=== PATIENT | female | born 1940 | race Caucasian/White ===

== ENCOUNTER 2018-10-14 12:34 | Inpatient (IN) | payer MEDICARE, OTHER ==
[~2018-10-14] VITALS: Ht 162.6 cm; Wt 85.7 kg
[~2018-10-14 12:34] MED LIST: CLON0.1T PO; DILT180C PO; METO-356 PO
--- NOTE | 2018-10-14 12:39 | NUR ---
PT AMBULATORY W/ WALKER TO ER BED . CAME IN W/ MULTIPLE COMPLAINTS. PT STATES STARTED HAVING PRESSURE LIKE CHEST PAIN AND SOB LAST NIGHT. PT ALSO C/O BLE SWELLING AND PAIN FOR DAYS NOW. FAMILY STATES WORST TODAY. GOWNED AND PLACED ON MONITOR. AWAITNG MD CRUZ.
--- NOTE | 2018-10-14 13:18 | NUR ---
IV LINE STARTED. BLOOD DRAWN AND SENT TO LAB.
--- NOTE | 2018-10-14 13:19 | NUR ---
DR CAM AT BEDSIDE FOR EVAL.
[2018-10-14 13:21] LABS: BASOPHILS # (AUTO) 0.1 /CMM (0.0-0.2); BASOPHILS % (AUTO) 0.6 % (0.0-2.0); EOSINOPHILS % (AUTO) 3.2 % (0.0-6.0); HEMATOCRIT 39 % (33-45); HEMOGLOBIN 13.2 g/dL (11.5-14.8); LYMPHOCYTES # (AUTO) 1.8 /CMM (0.8-4.8); LYMPHOCYTES % (AUTO) 17.5 % (20.0-44.0); MEAN CORPUSCULAR HGB CONC 34 g/dl (31.0-36.0); MEAN CORPUSCULAR VOLUME 89 fL (82-100); MONOCYTES # (AUTO) 0.8 /CMM (0.1-1.30); MONOCYTES % (AUTO) 8.1 % (2.0-12.0); NEUTROPHILS # (AUTO) 7.1 /CMM (1.8-8.9); NEUTROPHILS % (AUTO) 70.6 % (43.0-81.0); PLATELET COUNT (AUTO) 344 /CMM (150-450); RED BLOOD CELL COUNT(AUTO) 4.33 MIL/uL (4.0-5.2); WHITE BLOOD COUNT (AUTO) 10.1 K/uL (4.3-11.0)
[2018-10-14 13:33] LABS: CALCIUM, SERUM 8.7 mg/dL (8.5-10.1); CARBON DIOXIDE 29 mmol/L (21-32); CHLORIDE 104 mmol/L (98-107); CREATININE 0.9 mg/dL (0.6-1.3); GLUCOSE 139 mg/dL (74-106); POTASSIUM 4.2 mmol/L (3.5-5.1); SODIUM SERUM 140 mmol/L (136-145); UREA NITROGEN, BLOOD 26 mg/dL (7-18)
[2018-10-14] MEDS ORDERED: OLME40TA18 PO (13:44)
[2018-10-14] MEDS ORDERED: MONT10TA22 PO (13:44)
[2018-10-14] MEDS ORDERED: CITA20TA16 PO (13:44)
[2018-10-14] MEDS ORDERED: CLON0.1T PO (13:44)
[2018-10-14] MEDS ORDERED: ASPI81TA44 PO (13:44)
[2018-10-14] MEDS ORDERED: DICL100G16 TP (13:44)
[2018-10-14] MEDS ORDERED: ESOM40CA PO (13:44)
[2018-10-14] MEDS ORDERED: ALBU18HF2 IH (13:44)
[2018-10-14] MEDS ORDERED: FURO-144 PO (13:44)
[2018-10-14] MEDS ORDERED: ROSU20TA31 PO (13:44)
[2018-10-14] MEDS ORDERED: MEMA5TAB15 PO (13:44)
[2018-10-14] MEDS ORDERED: CELE200C PO (13:44)
--- NOTE | 2018-10-14 13:44 | NUR ---
CALLED DR LOWE ON THE PHONE WITH DR CAM
[2018-10-14 13:45] LABS: B-TYPE NATRIURETIC PEPTIDE 189 PG/ML (0-125)
--- NOTE | 2018-10-14 14:16 | NUR ---
304-[address] LOWE
[2018-10-14] MEDS ORDERED: ASPIRIN 325 MG TABLET PO ONE (14:30)
[2018-10-14] MEDS ORDERED: FUROSEMIDE 40 MG/4 ML VIAL IV ONE (14:30)
[2018-10-14] MEDS ORDERED: FUROSEMIDE 40 MG/4 ML VIAL ONE (14:44)
[2018-10-14] MEDS ORDERED: ASPIRIN 325 MG TABLET ONE (14:44)
--- NOTE | 2018-10-14 15:00 | NUR ---
REPORT GIVEN TO CORDELL. PT TRANSFERED TO FLOOR, STABLE CONDITION.
--- NOTE | 2018-10-14 15:30 | NUR ---
ADMISSION NOTE PT WAS BROUGHT UP AT THIS TIME, A/O X3-4, BREATHING EVEN AND UNLABORED ON RA, NO S/S OF ANY DISTRESS NOTED, IV IS PATENT AND INTACT, SAFETY PRECAUTIONS IN PLACE, CALL LIGHT WITHIN REACH, WILL MONITOR ACCORDINGLY
[2018-10-14 16:00] VITALS: BP 127/65
[2018-10-14] MEDS ORDERED: ACETAMINOPHEN 325 MG TABLET PO PRN (16:30)
[2018-10-14] MEDS: FUROSEMIDE 20 MG/2 ML VIAL IV SCH (17:35)
[2018-10-14] MEDS: AZITHROMYCIN 250 MG TABLET PO SCH (17:35)
--- NOTE | 2018-10-14 17:42 | NUR ---
INITIAL FINDING OF DUPLEX VENOUS LOWER EXT SHOWED POSITIVE FOR THROMBUS AT RIGHT SFV PROX LEVEL. ADVISED ATTENDING RN.
[2018-10-14] MEDS: CEFTRIAXONE 1 G in IV D5W 50 ML IV SCH (17:48)
[2018-10-14] MEDS: NITROGLYCERIN 30 GM TUBE TP SCH (17:48)
--- NOTE | 2018-10-14 18:33 | NUR ---
RN NOTE MESSAGE WAS SENT TO DR. LOWE REGARDING POSITIVE VENOUS STUDY FOR DVT IN RIGHT PROXIMAL FEMORAL VEIN
--- NOTE | 2018-10-14 18:36 | NUR ---
RN CLOSING NOTE PT IN BED AT LOWEST AND LOCKED POSITION WITH SIDE RAILS X2, A/O X3-4 WITH PERIODS OF FORGETFULNESS, IV IS PATENT AND INTACT, POSITIVE FOR DVT IN RLE, BREATHING EVEN AND UNLABORED WITH NO S/S OF ANY DISTRESS OR PAIN NOTED AT THIS TIME, SAFETY PRECAUTIONS IN PLACE, CALL LIGHT WITHIN REACH, ALL NEEDS ATTENDED TO, WILL ENDORSE TO ONCOMING COMPUTER TRAINING SPECIALIST RN FOR YOAN.
[2018-10-14] MEDS ORDERED: CLONIDINE HCL 0.1 MG TABLET PO PRN (19:30)
--- NOTE | 2018-10-14 19:30 | NUR ---
RN NOTES RECEIVED PT. SITTING ON HER BED, A/OX2-3 PERIOD OF CONFUSION, SONS AT BEDSIDE , SR ON TELE MONITOR HR-72, DENIES PAIN, NO SOB, CALL LIGHT WITHIN REACH, SIDERAILSUPX2, CONTINUE TO MONITOR
[2018-10-14] MEDS: ALBUTEROL FS 2.5 MG/0.5 ML VIAL.NEB NEB SCH (19:42)
[2018-10-14] MEDS: IPRATROPIUM NEB FS 0.5 MG/2.5 ML AMPUL.NEB NEB SCH (19:42)
[2018-10-14 20:00] VITALS: BP 92/62
[2018-10-14] MEDS ORDERED: ENOXAPARIN SODIUM 30 MG/0.3 ML DISP.SYRIN SQ SCH (21:00)
[2018-10-14] MEDS ORDERED: CITALOPRAM HYDROBROMIDE 20 MG TABLET PO SCH (22:00)
--- NOTE | 2018-10-14 23:00 | NUR ---
RN NOTES PT. GOT CONFUSED AND ASKING THE SAME QUESTIONS, "WHY SHE WAS IN THE HOSPITAL".. CALLED HER SON DIVINA AND HER SON KEEP EXPLAINING TO HER WHY SHE'S IN THE HOSPITAL... SPOKE TO PT'S SON AND HE TOLD ME THAT HIS MOM HAS SUNDOWNER AND IF I CAN GIVE HER SOMETHING . I EXPLAINED TO HER SON THAT I ALREADY GAVE SOMETHING AND LATER WERE GOING TO MOVE THE PT, TO ANOTHER ROOM NEAR THE NURSES STATION
[2018-10-15] VITALS: BP 119/66
[2018-10-15] MEDS: FUROSEMIDE 20 MG/2 ML VIAL IV SCH (00:48)
[2018-10-15] MEDS: NITROGLYCERIN 30 GM TUBE TP SCH ×4 (00:49→17:28)
--- NOTE | 2018-10-15 00:58 | NUR ---
RN NOTES COMPLAINED OF LEG PAIN AND ASKED FOR TYLENOL , TYLENOL 650MG PO GIVEN ORDERED
[2018-10-15] MEDS: IPRATROPIUM NEB FS 0.5 MG/2.5 ML AMPUL.NEB NEB SCH ×3 (01:27→13:32)
[2018-10-15] MEDS: ALBUTEROL FS 2.5 MG/0.5 ML VIAL.NEB NEB SCH ×3 (01:27→13:32)
[2018-10-15 04:00] VITALS: BP 100/58
--- NOTE | 2018-10-15 04:00 | NUR ---
RN NOTES PT. PULLED OUT HER IV .. NEW IV LINE INSERTED ON HER RIGHT FOREARM GAUGE 22
--- NOTE | 2018-10-15 06:30 | NUR ---
RN NOTES AWAKE, MORNING CARE RENDERED, CALL LIGHT WITHIN REACH, [id number], PT. NEEDS ATTENDED
[2018-10-15 06:51] LABS: BASOPHILS % (AUTO) 0.5 % (0.0-2.0); EOSINOPHILS % (AUTO) 3.4 % (0.0-6.0); HEMATOCRIT 38 % (33-45); HEMOGLOBIN 13.1 g/dL (11.5-14.8); LYMPHOCYTES # (AUTO) 2.2 /CMM (0.8-4.8); LYMPHOCYTES % (AUTO) 24.2 % (20.0-44.0); MEAN CORPUSCULAR HGB CONC 34 g/dl (31.0-36.0); MEAN CORPUSCULAR VOLUME 88 fL (82-100); MONOCYTES # (AUTO) 0.7 /CMM (0.1-1.30); MONOCYTES % (AUTO) 7.7 % (2.0-12.0); NEUTROPHILS # (AUTO) 5.7 /CMM (1.8-8.9); NEUTROPHILS % (AUTO) 64.2 % (43.0-81.0); PLATELET COUNT (AUTO) 352 /CMM (150-450); RED BLOOD CELL COUNT(AUTO) 4.37 MIL/uL (4.0-5.2); WHITE BLOOD COUNT (AUTO) 8.9 K/uL (4.3-11.0)
[2018-10-15 07:00] LABS: CALCIUM, SERUM 8.8 mg/dL (8.5-10.1); CARBON DIOXIDE 29 mmol/L (21-32); CHLORIDE 101 mmol/L (98-107); GLUCOSE 141 mg/dL (74-106); POTASSIUM 3.9 mmol/L (3.5-5.1); SODIUM SERUM 139 mmol/L (136-145); UREA NITROGEN, BLOOD 28 mg/dL (7-18)
--- NOTE | 2018-10-15 07:22 | NUR ---
RN OPENING NOTE PT IN BED AT LOWEST AND LOCKED POSITION WITH SIDE RAILS UP X2, A/O X2-3 WITH PERIODS OF CONFUSION, BREATHING EVEN AND UNLABORED ON RA, NO S/S OF ANY DISTRESS OR PAIN AT THIS TIME, IV IS PATENT AND INTACT, NOTED TO BLE REDNESS WITH SLIGHT SWELLING, NOTED TO HAVE OLD THROMBUS IN RIGHT PROXIMAL VEIN, SAFETY PRECAUTIONS IN PLACE, CALL LIGHT WITHIN REACH, WILL MONITOR PT ACCORDINGLY.
[2018-10-15] MEDS ORDERED: PANTOPRAZOLE 40 MG TABLET.DR PO SCH (07:30)
[2018-10-15 08:00] VITALS: BP 110/49
--- NOTE | 2018-10-15 08:32 | NUR ---
RN NOTE DUPLICATE DOSE OF ASPIRIN 81MG, ONE WAS NON-ADMIN BECAUSE OF IT.
[2018-10-15] MEDS ORDERED: ATORVASTATIN 10 MG TABLET PO SCH (09:00)
[2018-10-15] MEDS ORDERED: CELECOXIB 100 MG CAPSULE PO SCH (09:00)
[2018-10-15] MEDS ORDERED: LOSARTAN POTASSIUM 50 MG TABLET PO SCH (09:00)
[2018-10-15] MEDS ORDERED: ASPIRIN 81 MG TAB.CHEW PO SCH (09:00)
[2018-10-15] MEDS ORDERED: METOPROLOL SUCCINATE 25 MG TAB.SR.24H PO SCH (09:00)
[2018-10-15] MEDS ORDERED: MONTELUKAST SODIUM (10MG) 10 MG TABLET PO SCH (09:00)
[2018-10-15] MEDS ORDERED: ASPIRIN EC 81 MG TABLET.DR PO SCH (09:00)
[2018-10-15] MEDS ORDERED: ALBUTEROL SULFATE 8 GM HFA.AER.AD IH SCH (09:00)
[2018-10-15] MEDS ORDERED: MEMANTINE HCL 5 MG TABLET PO SCH (09:00)
--- NOTE | 2018-10-15 09:40 | NUR ---
RN NOTE PT REFUSED CT PULMONARY ANGIOGRAM AT THIS TIME, ROXANA WHITE WAS ALSO INFORMED. Addendum: 10/15/18 at 1515 by CORDELL ONEILL RN ALSO MADE AWARE
[2018-10-15 16:00] VITALS: BP 105/73
[2018-10-15] MEDS: AZITHROMYCIN 250 MG TABLET PO SCH (16:29)
[2018-10-15] MEDS ORDERED: LACTOBACILLUS RHAMNOSUS GG 1 EACH CAP.SPRINK PO SCH (17:00)
[2018-10-15] MEDS: CEFTRIAXONE 1 G in IV D5W 50 ML IV SCH (17:04)
[2018-10-15 17:28] VITALS: BP 108/73
--- NOTE | 2018-10-15 18:01 | NUR ---
DISCHARGE NOTE PT WAS D/C AT THIS TIME BACK HOME WITH HER SON DIVINA IN MEDICALLY STABLE CONDITION, IV AND ID BAND WERE REMOVED. ALL D/C PAPERWORK, EXITCARE, AND BELONGINGS LIST WERE SIGNED, DISCUSSED, AND HANDED TO THE PT. ALL BELONGINGS WERE HANDED TO THE PATIENT WELL. PHOTOS OF SKIN WERE TAKEN AND PLACED IN THE CHART. PRESCRIPTION WAS GIVEN WELL. ALL NEEDS WERE ATTENDED TO DURING HER STAY. PT WAS TAKEN DOWN AT THIS TIME BY JUANJO MENCHACA, WHERE SHE LEFT AT THIS TIME IN THEIR PRIVATE CAR.
== END 2018-10-15 18:11 | disposition home or self-care (01) | DRG 203 ==
LOC: ER 12:36 → TELE 14:29 → MED 10-15 09:09
PROVIDERS: ADMIT Legal Medicine; ATTEND Legal Medicine
DX: J45.901 Unspecified asthma with (acute) exacerbation (principal); J44.9 Chronic obstructive pulmonary disease, unspecified; I10 Essential (primary) hypertension; F03.90 Unspecified dementia, unspecified severity, without behavioral disturbance, psychotic disturbance, mood disturbance, and anxiety; E78.5 Hyperlipidemia, unspecified; K21.9 Gastro-esophageal reflux disease without esophagitis
CPT/HCPCS: 36415; 71045-TC; 80048-TC; 83735-TC; 83880; 84484-TC; 85025-TC; 85730-TC; 87081-TC; 93307-TC; 93970-TC; G0378; J0696; J1650; J1940; J7060

== ENCOUNTER 2019-06-25 11:33 | Inpatient (IN) | payer MEDICARE, OTHER ==
[~2019-06-25] VITALS: Ht 165.1 cm; Wt 98.4 kg
[~2019-06-25 11:33] MED LIST changes: +ALBU18HF2 IH; +ASPI81TA44 PO; +CELE200C PO; +CITA20TA16 PO; +DICL100G16 TP; -DILT180C PO; +ESOM40CA PO; +FURO-144 PO; +MEMA5TAB42 PO; -METO-356 PO; +METO25TA4 PO; +MONT10TA22 PO; +OLME40TA18 PO; +ROSU20TA32 PO
--- NOTE | 2019-06-25 11:37 | NUR ---
[id number], from home, flu like symptoms, cough since yesterday. +FEVER. STATES PAIN IN LEFT LEG FROM PREVIOUS FALL. DENIES SOB, DIZZINESS, WEAKNESS, N/V. AOX4, VSS, RR EVEN AND UNLABORED. SPEAKS SOME SWEDISH. ON MONITOR, MADE COMFORTABLE, READY FOR EVAL.
[2019-06-25] MEDS ORDERED: ACETAMINOPHEN ES 500 MG TABLET ONE (11:44)
[2019-06-25] MEDS ORDERED: ACETAMINOPHEN ES 500 MG TABLET PO ONE (12:00)
[2019-06-25] MEDS ORDERED: IV NS 0.9% 500 ML BAG IV ONE (12:00)
[2019-06-25 12:01] LABS: BASOPHILS % (AUTO) 0.2 % (0.0-2.0); EOSINOPHILS % (AUTO) 0.1 % (0.0-6.0); HEMATOCRIT 41 % (33-45); HEMOGLOBIN 13.7 g/dL (11.5-14.8); LYMPHOCYTES # (AUTO) 0.6 /CMM (0.8-4.8); LYMPHOCYTES % (AUTO) 7.3 % (20.0-44.0); MEAN CORPUSCULAR HGB CONC 33 g/dl (31.0-36.0); MEAN CORPUSCULAR VOLUME 91 fL (82-100); MONOCYTES # (AUTO) 0.8 /CMM (0.1-1.30); MONOCYTES % (AUTO) 8.8 % (2.0-12.0); NEUTROPHILS # (AUTO) 7.2 /CMM (1.8-8.9); NEUTROPHILS % (AUTO) 83.6 % (43.0-81.0); PLATELET COUNT (AUTO) 252 /CMM (150-450); RED BLOOD CELL COUNT(AUTO) 4.52 MIL/uL (4.0-5.2); WHITE BLOOD COUNT (AUTO) 8.6 K/uL (4.3-11.0)
--- NOTE | 2019-06-25 12:06 | NUR ---
IV LINE ESTABLISHED, IVF INFUSING. PT ZAYNAB WELL.
[2019-06-25 12:15] LABS: CALCIUM, SERUM 8.9 mg/dL (8.5-10.1); CARBON DIOXIDE 32 mmol/L (21-32); CHLORIDE 100 mmol/L (98-107); CREATININE 1.1 mg/dL (0.6-1.3); GLUCOSE 172 mg/dL (74-106); POTASSIUM 3.9 mmol/L (3.5-5.1); SODIUM SERUM 137 mmol/L (136-145); UREA NITROGEN, BLOOD 21 mg/dL (7-18)
--- NOTE | 2019-06-25 12:23 | NUR ---
lactic acid 2.3
[2019-06-25 12:29] LABS: ALANINE AMINOTRANSFERASE 26 U/L (12-78); ALBUMIN 3.5 g/dL (3.4-5.0); ALKALINE PHOSPHATASE 58 U/L (46-116); ASPARTATE AMINOTRANSFERASE 23 U/L (15-37); B-TYPE NATRIURETIC PEPTIDE 306 PG/ML (0-125); BILIRUBIN,DIRECT 0.1 mg/dL (0.0-0.2); BILIRUBIN,TOTAL 0.6 mg/dL (0.2-1.0); TOTAL PROTEIN, SERUM 7.3 g/dL (6.4-8.2)
[2019-06-25] MEDS ORDERED: IV NS 0.9% 1,000 ML BAG IV ONE (12:30)
[2019-06-25] MEDS ORDERED: PIPERACILLIN /TAZOBACTAM 3.375 G in IV D5W 50 ML IV ONE (12:30)
[2019-06-25] MEDS ORDERED: VANCOMYCIN 1 GM in IV D5W 250 ML IV ONE (12:30)
--- NOTE | 2019-06-25 12:35 | NUR ---
CALLED FOR TELE BED AND SUBMITTED MOVE SHEET TO ADMITTING
--- NOTE | 2019-06-25 12:45 | NUR ---
GOT TELE 328-2
--- NOTE | 2019-06-25 13:00 | NUR ---
FLU SWAB SENT TO STAT LAB
--- NOTE | 2019-06-25 13:10 | NUR ---
ESSIE PAGED ITS MAYCO
--- NOTE | 2019-06-25 13:20 | NUR ---
URINE OBTAINED VIA STRAIGHT CATH PER PROTOCOL PER MD AND SENT TO STAT LAB
[2019-06-25 13:55] LABS: APPEARANCE,URINE Clear (CLEAR); BILIRUBIN,URINE Negative (NEGATIVE); BLOOD, URINE Negative Ery/uL (NEGATIVE); COLOR,URINE Yellow (YELLOW); KETONES,URINE Negative (NEGATIVE); LEUKOCYTE ESTERASE ,URINE Negative (NEGATIVE); NITRITE, URINE Negative (NEGATIVE); PH,URINE 6.5 (5.0-8.0); PROTEIN,URINE Negative (NEGATIVE); UGLUCOSE Negative (NEGATIVE); UROBILINOGEN,URINE 0.2 EU/dL (0.2)
--- NOTE | 2019-06-25 13:59 | NUR ---
REPORT GIVEN TO BABATUNDE ESTEBAN FOR 328-2 TELE, ADMITTING GILMAR MAO.
--- NOTE | 2019-06-25 14:12 | NUR ---
[facility]
--- NOTE | 2019-06-25 14:30 | NUR ---
MS/RN ADMITTING NOTE Report received from Jennifer FINE in the ER. Patient received via gurney, A/O x4, showing no signs of acute distress or SOB, patient is saturating 97% on room air. Slight wheezing noted upon auscultation. IV line in the RAC is clean and intact, open and running NS for a total of 3,100 started in the ER. Vital signs: BP 141/69, HR 82, RR 20, T 98.7F, O2 97% on RA. Skin assessed, photos taken and placed in chart. Patient was able to ambulate to the bathroom using a walker and stand-by assistance. MD made aware that patient has arrived and awaiting admitting orders. Bed is in lowest position, side rails x3, in upright position, call light is within reach and patient is aware of how to call for assistance when needed. Will continue with plan of care.
[2019-06-25] MEDS ORDERED: IV NS 0.9% 1,000 ML IV PRN (18:25)
[2019-06-25] MEDS ORDERED: CLONIDINE HCL 0.1 MG TABLET PO PRN (18:30)
[2019-06-25] MEDS ORDERED: ONDANSETRON HCL/PF 4 MG/2 ML VIAL IVP PRN (18:30)
[2019-06-25] MEDS ORDERED: ACETAMINOPHEN 325 MG TABLET PO PRN (18:30)
[2019-06-25] MEDS ORDERED: DICLOFENAC TOPICAL 100 GM GEL..GM. TP PRN (18:30)
[2019-06-25] MEDS ORDERED: Z GUARD REMEDY 2 OZ OINT TP PRN (18:30)
[2019-06-25] MEDS ORDERED: QUETIAPINE FUMARATE 25 MG TABLET PO PRN (19:00)
[2019-06-25] MEDS ORDERED: DEXAMETHASONE SOD PHOSPHATE 10 MG/ML VIAL IV ONE (19:00)
--- NOTE | 2019-06-25 19:30 | NUR ---
RN NOTES RECEIVED PT. AWAKE ON BED, A/OX2, TRINIDADIAN SPEAKING, FAMILY AT BEDSIDE, ST ON TELE MONITOR HR-104, NOT IN DISTRESS, BUT NOTICED PT. IS WHEEZING,, CALLED RT FOR BREATHING TREATMENT... CALL LIGHT WITHIN REACH, SIDERAILSUPX2, CONTINUE TO MONITOR
--- NOTE | 2019-06-25 19:32 | NUR ---
BUSINESS PLANNING ANALYST CLOSING NOTE PATIENT IN BED RESTING COMFORTABLY. PATIENT IN NO ACUTE DISTRESS. NO SOB NOTED. PATIENT BREATHING IS EVEN AND UNLABORED. PATIENT ON CARDIAC MONITORING READING SINUS RHYTHM, HR 93. PATIENT KEPT CLEAN AND DRY THROUGHOUT SHIFT. PATIENT NEEDS AND CONCERNS ADDRESSED. SAFETY PRECAUTIONS IN PLACE. PATIENT BED IS LOCKED AND IN LOWEST POSITION. CALL LIGHT WITHIN REACH. WILL ENDORSE CARE TO PM SHIFT FOR YOAN.
[2019-06-25 20:00] VITALS: BP 152/78
[2019-06-25] MEDS: IPRATROPIUM NEB FS 0.5 MG/2.5 ML AMPUL.NEB NEB SCH (20:04)
[2019-06-25] MEDS: ALBUTEROL FS 2.5 MG/3 ML VIAL.NEB NEB SCH (20:04)
[2019-06-25] MEDS ORDERED: ENOXAPARIN SODIUM 40 MG/0.4 ML DISP.SYRIN SQ SCH (21:00)
--- NOTE | 2019-06-25 21:47 | NUR ---
RN NOTES PT HAS TEMP. OF 99.8 - TYLENOL 650MG PO GIVEN ORDERED, CONTINUE TO MONITOR
[2019-06-25] MEDS: CEPHALEXIN MONOHYDRATE 500 MG CAPSULE PO SCH (21:52)
[2019-06-25] MEDS ORDERED: MONTELUKAST SODIUM (10MG) 10 MG TABLET PO SCH (22:00)
[2019-06-25] MEDS ORDERED: CITALOPRAM HYDROBROMIDE 20 MG TABLET PO SCH (22:00)
[2019-06-25] MEDS ORDERED: ATORVASTATIN 40 MG TABLET PO SCH (22:00)
[2019-06-26] VITALS: BP 95/52
[2019-06-26 04:00] VITALS: BP 112/50
--- NOTE | 2019-06-26 04:00 | NUR ---
RN NOTES PT. TEMP WENT DOWN TO 97.9... PT. WAS SO AGITATED AND WANTS TO GO TO THE TOILET , PT TRIED TO HIT US WHEN WERE HELPING HER TO GO TO THE COMMODE BECAUSE SHE WAS SO WEAK AND NOT STABLE, PT. REFUSED ASSISTANCE.. WE EXPLAINED TO THE PATIENT THE IMPORTANCE OF GOING TO THE COMMODE THAN GOING TO THE TOILET, STILL TRYING TO HIT US... PT CAN UNDERSTAND TURKISH AND CAN SPEAK LITTLE TURKISH... FINALLY PATIENT AGREED FOR US TO HOLD HER BUT SHE'S STILL MAD
[2019-06-26] MEDS: CEPHALEXIN MONOHYDRATE 500 MG CAPSULE PO SCH ×2 (04:40→13:00)
[2019-06-26 06:25] LABS: BASOPHILS % (AUTO) 0.1 % (0.0-2.0); HEMATOCRIT 41 % (33-45); HEMOGLOBIN 13.1 g/dL (11.5-14.8); LYMPHOCYTES # (AUTO) 0.4 /CMM (0.8-4.8); LYMPHOCYTES % (AUTO) 5.5 % (20.0-44.0); MEAN CORPUSCULAR HGB CONC 32 g/dl (31.0-36.0); MEAN CORPUSCULAR VOLUME 92 fL (82-100); MONOCYTES # (AUTO) 0.2 /CMM (0.1-1.30); MONOCYTES % (AUTO) 2.9 % (2.0-12.0); NEUTROPHILS # (AUTO) 6.7 /CMM (1.8-8.9); NEUTROPHILS % (AUTO) 91.5 % (43.0-81.0); PLATELET COUNT (AUTO) 191 /CMM (150-450); RED BLOOD CELL COUNT(AUTO) 4.44 MIL/uL (4.0-5.2); WHITE BLOOD COUNT (AUTO) 7.3 K/uL (4.3-11.0)
--- NOTE | 2019-06-26 06:34 | NUR ---
RN NOTES SLEEPING BUT AROUSABLE, NOT IN DISTRESS, NO PAIN NOTED, CALL LIGHT WITHIN REACH, SIDERAILSUPX2, MORNING CARE RENDERED, PT. NEEDS ATTENDED
[2019-06-26 06:39] LABS: ALBUMIN 2.7 g/dL (3.4-5.0); BILIRUBIN,TOTAL 0.3 mg/dL (0.2-1.0); CALCIUM, SERUM 8.1 mg/dL (8.5-10.1); CREATININE 0.9 mg/dL (0.6-1.3); MAGNESIUM 1.8 mg/dL (1.8-2.4); POTASSIUM 3.7 mmol/L (3.5-5.1); TOTAL PROTEIN, SERUM 6.2 g/dL (6.4-8.2)
[2019-06-26 06:43] LABS: THYROID STIMULATING HORMONE 0.189 uIU/mL (0.358-3.74)
[2019-06-26] MEDS: IPRATROPIUM NEB FS 0.5 MG/2.5 ML AMPUL.NEB NEB SCH ×2 (07:16→11:40)
[2019-06-26] MEDS: ALBUTEROL FS 2.5 MG/3 ML VIAL.NEB NEB SCH ×2 (07:16→11:40)
--- NOTE | 2019-06-26 07:20 | NUR ---
TELE/RN OPENING NOTOE Patient is resting in bed, A/O x2, confused and agitated. Patient is currently receiving breathing treatment, showing no signs of SOB at the moment. IV line is clean and intact, patent and flushing well. Bed is in lowest position, side rails x3 in upright position, call light is within reach and patient is aware of how to call for assistance when needed. Safety, fall, and aspiration precautions enforced. Sitter is at the bedside. Will continue with plan of care.
[2019-06-26] MEDS ORDERED: PANTOPRAZOLE 40 MG TABLET.DR PO SCH (07:30)
[2019-06-26 08:49] VITALS: BP 129/84
[2019-06-26] MEDS ORDERED: CELECOXIB 100 MG CAPSULE PO SCH (09:00)
[2019-06-26] MEDS ORDERED: ASPIRIN EC 81 MG TABLET.DR PO SCH (09:00)
[2019-06-26] MEDS ORDERED: MEMANTINE HCL 5 MG TABLET PO SCH (09:00)
[2019-06-26] MEDS ORDERED: LOSARTAN POTASSIUM 50 MG TABLET PO SCH (09:00)
[2019-06-26] MEDS ORDERED: FUROSEMIDE 40 MG TABLET PO SCH (09:00)
[2019-06-26] MEDS ORDERED: CANDESARTAN CILEXETIL 16 MG TABLET PO SCH (09:00)
[2019-06-26] MEDS ORDERED: METOPROLOL SUCCINATE 25 MG TAB.SR.24H PO SCH (09:00)
--- NOTE | 2019-06-26 13:26 | NUR ---
MS/PLUMBING ENGINEER NOTE Patient is medically stable for discharge. A/O x3, with periods of confusion. Patient is in no acute distress, no SOB noted, saturating 97% on RA. Vitals signs WNL. All patient needs met, all due meds given. Patient kept clean and comfortable throughout shift. DC instructions provided and patient verbalized understanding. Patient refused skin assessment and photos. IV removed, ID band removed. Patient has all belongings with them. MD is aware of discharge. Patient left the unit on wheelchair and left hospital via private car accompanied by son, Ed.
== END 2019-06-26 13:30 | disposition home or self-care (01) | DRG 202 ==
LOC: ER 11:35 → TELE 13:05 → MED 06-26 08:45
PROVIDERS: ADMIT Nurse Practitioner Acute Care; ATTEND Nurse Practitioner Acute Care
DX: J20.8 Acute bronchitis due to other specified organisms (principal); G93.41 Metabolic encephalopathy; E87.2 Acidosis; I50.32 Chronic diastolic (congestive) heart failure; F03.91 Unspecified dementia, unspecified severity, with behavioral disturbance; E66.01 Morbid (severe) obesity due to excess calories; E88.09 Other disorders of plasma-protein metabolism, not elsewhere classified; I25.10 Atherosclerotic heart disease of native coronary artery without angina pectoris; J45.909 Unspecified asthma, uncomplicated; K21.9 Gastro-esophageal reflux disease without esophagitis; I11.0 Hypertensive heart disease with heart failure; M19.90 Unspecified osteoarthritis, unspecified site; S91.001A Unspecified open wound, right ankle, initial encounter; X58.XXXA Exposure to other specified factors, initial encounter; Y93.9 Activity, unspecified; Y92.009 Unspecified place in unspecified non-institutional (private) residence as the place of occurrence of the external cause; L53.9 Erythematous condition, unspecified
CPT/HCPCS: 36415; 71045-TC; 80048-TC; 80053-TC; 80061-TC; 80076-TC; 81000-TC; 83540-TC; 83605-TC; 83735-TC; 83880; 84100-TC; 84443-TC; 84484-TC; 85025-TC; 85730-TC; 87040-TC; 87081-TC; 87086-TC; 93307-TC; 97116-TC; 97530-TC; G0378; J1100; J1650; J2543; J3370; J7030; J7040; J7060

== ENCOUNTER 2020-06-23 12:22 | Inpatient (IN) | payer MEDICARE, OTHER ==
[~2020-06-23] VITALS: Ht 162.6 cm; Wt 81.6 kg
--- NOTE | 2020-06-23 12:30 | NUR ---
BIBRA 78 FROM HOME C/O WEAKNESS AND MORE ALTERED THAN USUAL.BG 128. PATIENT A/OX3, BREATHING EVEN AND UNLABORED, NO SOB NOTED. NEEDS ATTENDED. PT STS "I HAVE LUNG PAIN." CHANGED INTO A GOWN, ATTACHED TO THE FANS CLERK.
[2020-06-23 12:55] LABS: BASOPHILS % (AUTO) 0.3 % (0.0-2.0); HEMATOCRIT 43 % (33-45); HEMOGLOBIN 14.3 g/dL (11.5-14.8); LYMPHOCYTES # (AUTO) 1.6 /CMM (0.8-4.8); MEAN CORPUSCULAR HGB CONC 33 g/dl (31.0-36.0); MEAN CORPUSCULAR VOLUME 91 fL (82-100); MONOCYTES # (AUTO) 0.7 /CMM (0.1-1.30); MONOCYTES % (AUTO) 10.8 % (2.0-12.0); NEUTROPHILS # (AUTO) 4.4 /CMM (1.8-8.9); NEUTROPHILS % (AUTO) 64.9 % (43.0-81.0); PLATELET COUNT (AUTO) 201 /CMM (150-450); RED BLOOD CELL COUNT(AUTO) 4.75 MIL/uL (4.0-5.2); WHITE BLOOD COUNT (AUTO) 6.8 K/uL (4.3-11.0)
[2020-06-23] MEDS ORDERED: IV NS 0.9% 1,000 ML BAG IV ONE (13:00)
--- NOTE | 2020-06-23 13:06 | NUR ---
COVID SWAB AND URINE SENT.
[2020-06-23 13:08] LABS: CALCIUM, SERUM 8.6 mg/dL (8.5-10.1); CARBON DIOXIDE 30 mmol/L (21-32); CHLORIDE 102 mmol/L (98-107); CREATININE 1.1 mg/dL (0.6-1.3); GLUCOSE 111 mg/dL (74-106); POTASSIUM 4.4 mmol/L (3.5-5.1); SERUM AMMONIA 14 umol/L (11-32); SODIUM SERUM 139 mmol/L (136-145); UREA NITROGEN, BLOOD 25 mg/dL (7-18)
[2020-06-23 13:16] LABS: ALANINE AMINOTRANSFERASE 22 U/L (12-78); ALBUMIN 3.1 g/dL (3.4-5.0); ALCOHOL, BLOOD < 3 mg/dL (0-0); ALKALINE PHOSPHATASE 54 U/L (46-116); ASPARTATE AMINOTRANSFERASE 39 U/L (15-37); BILIRUBIN,DIRECT 0.1 mg/dL (0.0-0.2); BILIRUBIN,TOTAL 0.4 mg/dL (0.2-1.0); TOTAL PROTEIN, SERUM 7.1 g/dL (6.4-8.2)
[2020-06-23 13:17] LABS: ACETAMINOPHEN < 10 ug/ml (10-30)
[2020-06-23 13:22] LABS: BILIRUBIN,URINE NEGATIVE (NEGATIVE); COLOR,URINE YELLOW (YELLOW); LEUKOCYTE ESTERASE ,URINE NEGATIVE (NEGATIVE); NITRITE, URINE NEGATIVE (NEGATIVE); PROTEIN,URINE NEGATIVE (NEGATIVE); UGLUCOSE NEGATIVE (NEGATIVE); UROBILINOGEN,URINE 0.2 EU/dL (0.2)
[2020-06-23] MEDS ORDERED: GABA-532 PO (13:33)
[2020-06-23] MEDS ORDERED: RISP1TAB97 PO (13:33)
[2020-06-23] MEDS ORDERED: ASPI-495 PO (13:33)
[2020-06-23 13:40] LABS: THYROID STIMULATING HORMONE 1.025 uIU/mL (0.358-3.74)
[2020-06-23] MEDS ORDERED: MAGNESIUM HYDROXIDE 30 ML UDC PO PRN (14:30)
[2020-06-23] MEDS ORDERED: ENOXAPARIN SODIUM 40 MG/0.4 ML DISP.SYRIN SQ SCH (14:30)
[2020-06-23] MEDS ORDERED: MAG HYDROX/AL HYDROX/SIMETH 30 ML UDC PO PRN (14:30)
[2020-06-23] MEDS ORDERED: Z GUARD REMEDY 2 OZ OINT TP PRN (14:30)
[2020-06-23] MEDS ORDERED: ACETAMINOPHEN 325 MG TABLET PO PRN (14:30)
[2020-06-23] MEDS ORDERED: ZOLPIDEM TARTRATE 5 MG TABLET PO PRN (14:30)
[2020-06-23] MEDS ORDERED: ONDANSETRON HCL/PF 4 MG/2 ML VIAL IVP PRN (14:30)
--- NOTE | 2020-06-23 14:38 | NUR ---
PATIENT RESTING, NO DISTRESS NOTED.
--- NOTE | 2020-06-23 14:41 | NUR ---
PER DIVINA, PT HAS BEEN WEAK LATELY, SHE WALKS WITH A WALKER. LIVES ALONE WITH CAREGIVER.
--- NOTE | 2020-06-23 15:01 | NUR ---
BED 116-1
--- NOTE | 2020-06-23 15:11 | NUR ---
REPORT GIVEN TO EVELYN FINE FOR YOAN.
[2020-06-23] MEDS ORDERED: DEXAMETHASONE SOD PHOSPHATE 10 MG/ML VIAL IV STA (15:14)
--- NOTE | 2020-06-23 15:24 | NUR ---
PATIENT TRANSFERRED TO ROOM 116-1 VIA ACLS PROTOCOL. NO DISTRESS NOTED.
--- NOTE | 2020-06-23 15:30 | NUR ---
ADMITTING NOTES RECEIVED PATIENT FROM ER ER, VIA BOBBI GRAY, NORTH KOREAN/[place] SPEAKER VERBALIZE UNDERSTANDING, ON ROOM AIR, SPO2 IS 95%, DENIES PAIN OR DISCOMFORT, SKIN IS INTACT, IV LINE ON R AC, STARTED ON IV FLUIDS, TOLERATING WELL, ELIZALDE CATH IN PLACE, DRAINING YELLOW URINE BY GRAVITY, SAFETY MEASURES IN PLACE, CALL LIGHT IN REACH, WILL CONT TO MONITOR
[2020-06-23 16:00] VITALS: BP 153/72
[2020-06-23] MEDS: MEMANTINE HCL 5 MG TABLET PO SCH (16:49)
[2020-06-23] MEDS: GABAPENTIN 100 MG CAPSULE PO SCH (16:49)
[2020-06-23] MEDS: IV NS 0.9% 1,000 ML IV PRN (16:52)
--- NOTE | 2020-06-23 17:00 | NUR ---
patient is confused, trying to get up fom the bed, remving IV lines and Manning cath, provided education and reorientation x3, connected with family via phone, still confused, informed MD , waiting for order
[2020-06-23 17:08] LABS: C-REACTIVE PROTEIN 0.6 mg/dL (0.0-0.9)
--- NOTE | 2020-06-23 17:30 | NUR ---
CONTINUE TO REMOVE LINES, PULLED OUT IV LINE, VERY UNCOOPERATIVE, VERY DELIRIOUS, WILL MONITOR CLOSELY
--- NOTE | 2020-06-23 18:49 | NUR ---
RN CLOSING NOTES PATIENT REMAINS IN ROOM ON BILAT SOFT RESTRAINS, FREQUENT CHECKS Q15 MIN DONE;STILL CONFUSED AND AGITATED, MEDICATIONS GIVEN, COMFORT NEEDS ATTENDED, SAFETY MEASURES IN PLACE, WILL ENDORSE TO INCOMING SHIFT RN FOR YOAN
--- NOTE | 2020-06-23 19:55 | NUR ---
RN NOTE PT RECEIVED IN BED A/O X1.PT IS ON RA SATING 91 TO 93%. PT HAS ON LABORED BREATHING. SAFETY MEASURES IN PLACE.
[2020-06-23 20:00] VITALS: BP 162/58
[2020-06-23] MEDS: ENOXAPARIN SODIUM 40 MG/0.4 ML DISP.SYRIN SQ SCH (21:19)
[2020-06-23] MEDS: ATORVASTATIN 40 MG TABLET PO SCH (21:20)
[2020-06-23] MEDS: risperiDONE 1 MG TABLET PO SCH (21:20)
[2020-06-24 04:00] VITALS: BP 160/92
[2020-06-24] MEDS: IV NS 0.9% 1,000 ML IV PRN ×2 (05:27→21:13)
[2020-06-24 07:05] LABS: BASOPHILS % (AUTO) 0.2 % (0.0-2.0); HEMATOCRIT 44 % (33-45); HEMOGLOBIN 14.8 g/dL (11.5-14.8); LYMPHOCYTES # (AUTO) 0.9 /CMM (0.8-4.8); LYMPHOCYTES % (AUTO) 20.6 % (20.0-44.0); MEAN CORPUSCULAR HGB CONC 34 g/dl (31.0-36.0); MEAN CORPUSCULAR VOLUME 89 fL (82-100); MONOCYTES # (AUTO) 0.3 /CMM (0.1-1.30); MONOCYTES % (AUTO) 6.9 % (2.0-12.0); NEUTROPHILS # (AUTO) 3.2 /CMM (1.8-8.9); NEUTROPHILS % (AUTO) 72.3 % (43.0-81.0); PLATELET COUNT (AUTO) 199 /CMM (150-450); RED BLOOD CELL COUNT(AUTO) 4.93 MIL/uL (4.0-5.2); WHITE BLOOD COUNT (AUTO) 4.4 K/uL (4.3-11.0)
--- NOTE | 2020-06-24 07:24 | NUR ---
RN NOTE NO ACUTE CHANGES. PT REMAINED STABLE REPORT GIVEN TO INCOMING SHIFT FOR YOAN.
--- NOTE | 2020-06-24 07:47 | NUR ---
MS RN NOTE PATIENT IN BED ALERT ORIENTED BUT SOME FORGETFULNESS , SPOKE WITH SON OK TO USE SOFT RESTRAIN PATIENT TRYING TO REMOVE ALL LINES, LT HAND HL INTACT AND FLUSHED WELL HAVING BREAKFAST ABLE TO EAT SELF , CALL LIGHT WITHIN REACH, ON RA NO SOB AT THIS TIME , WILL MONITOR
[2020-06-24 08:00] VITALS: BP 156/85
[2020-06-24 08:01] LABS: THYROID STIMULATING HORMONE 0.404 uIU/mL (0.358-3.74)
[2020-06-24 08:02] LABS: CALCIUM, SERUM 8.7 mg/dL (8.5-10.1); CREATININE 0.8 mg/dL (0.6-1.3); MAGNESIUM 2.1 mg/dL (1.8-2.4); PHOSPHORUS 3.9 mg/dL (2.5-4.9); POTASSIUM 4.4 mmol/L (3.5-5.1)
[2020-06-24] MEDS: ASPIRIN EC 81 MG TABLET.DR PO SCH (08:22)
[2020-06-24] MEDS: MEMANTINE HCL 5 MG TABLET PO SCH ×2 (08:22→16:54)
[2020-06-24] MEDS: MONTELUKAST SODIUM (10MG) 10 MG TABLET PO SCH (08:23)
[2020-06-24] MEDS: GABAPENTIN 100 MG CAPSULE PO SCH ×2 (08:23→16:54)
[2020-06-24] MEDS: ALBUTEROL SULFATE INH 18 GM HFA.AER.AD IH SCH (08:24)
[2020-06-24] MEDS ORDERED: DEXAMETHASONE SOD PHOSPHATE 10 MG/ML VIAL IV SCH (09:00)
--- NOTE | 2020-06-24 09:28 | NUR ---
MS RN NOTE ASSISTED TO BED TRAORE ABLE TO MAKE BM ,KEEP CLEAN DRY ,ALL NEEDS ATTENDED
--- NOTE | 2020-06-24 10:15 | NUR ---
local telephone operator note pt at bedside able to ambulate using a walker
[2020-06-24 11:00] VITALS: BP 139/84
[2020-06-24 12:00] VITALS: BP 139/84
[2020-06-24] MEDS: HYDROCODONE/APAP 5/325MG TABLET PO PRN (14:34)
--- NOTE | 2020-06-24 15:00 | NUR ---
CARTRIDGE ASSEMBLER NOTE STILL VERY CONFUSED TRYING TO REMOVE ALL LINES ,UNABLE TO REMOVE SOFT RESTRAIN AT THIS TIME , WILL M MONITOR
[2020-06-24 16:00] VITALS: BP 155/91
--- NOTE | 2020-06-24 16:22 | NUR ---
DISTRICT CUSTOMS DIRECTOR NOTE VERY RESTLESS AND TRY TO REMOVE ALL LINE AND SOFT RESTRAIN CALLED TO DR BENOIT WITH ORDER SEROQUEL 12,5 MG PO Q6 HOUR PRN , ORDER CARRIED OUT, WILL MONITOR
[2020-06-24] MEDS: QUETIAPINE FUMARATE 25 MG TABLET PO PRN (16:25)
--- NOTE | 2020-06-24 16:25 | NUR ---
MS RN NOTE CALLED ON NOTIFIED THAT PATIENT BECOME VERY RESTLESS, DR WESLY UMANZOR STATED ITS OK WILL F\U
--- NOTE | 2020-06-24 17:36 | NUR ---
DIRECTOR FOUNDATION NOTE PATINT STILL AGITATED AND REMOVE ELIZALDE CATH AND RTY TO REMOVE IV LINE ZYPREXA 12.5 PO GIVEN ORDERED AND AYUSH GLOVES APPLIED TO PROTECT IV LINE ALSO PER DR KAYCEE GARCÍA NOT REINSERT ELIZALDE
--- NOTE | 2020-06-24 18:55 | NUR ---
MS RN NOTE MS RN NOTE ALL NEEDS ATTENDED, STILL VERY RESTLESS , WILL MONITOR CLOSELY
[2020-06-24 20:00] VITALS: BP 144/78
--- NOTE | 2020-06-24 20:00 | NUR ---
RN NOTE RECEIVED PT IN BED A/O X1. ON RA SATING 94%. HAS UNLABORED BREATHING. SAFETY MEASURES IN PLACE.
[2020-06-24] MEDS: ENOXAPARIN SODIUM 40 MG/0.4 ML DISP.SYRIN SQ SCH (21:12)
[2020-06-24] MEDS: risperiDONE 1 MG TABLET PO SCH (21:12)
[2020-06-24] MEDS: ATORVASTATIN 40 MG TABLET PO SCH (21:12)
[2020-06-25 04:00] VITALS: BP 153/73
[2020-06-25 07:03] LABS: BASOPHILS % (AUTO) 0.1 % (0.0-2.0); HEMATOCRIT 43 % (33-45); HEMOGLOBIN 14.3 g/dL (11.5-14.8); LYMPHOCYTES # (AUTO) 0.9 /CMM (0.8-4.8); LYMPHOCYTES % (AUTO) 6.8 % (20.0-44.0); MEAN CORPUSCULAR HGB CONC 34 g/dl (31.0-36.0); MEAN CORPUSCULAR VOLUME 89 fL (82-100); MONOCYTES # (AUTO) 0.8 /CMM (0.1-1.30); MONOCYTES % (AUTO) 6.2 % (2.0-12.0); NEUTROPHILS # (AUTO) 10.9 /CMM (1.8-8.9); NEUTROPHILS % (AUTO) 86.9 % (43.0-81.0); PLATELET COUNT (AUTO) 227 /CMM (150-450); RED BLOOD CELL COUNT(AUTO) 4.79 MIL/uL (4.0-5.2); WHITE BLOOD COUNT (AUTO) 12.6 K/uL (4.3-11.0)
--- NOTE | 2020-06-25 07:13 | NUR ---
MS/RN OPENING NOTE RECEIVED PATIENT FROM VETERINARIAN NURSE PATIENT A/O X1. PATIENT IN BED ASLEEP, EASILY WOKEN UP. NO ACUTE DISTRESS NOTED. ALL SAFETY MEASURES IN PLACE WILL CONTINUE TO MONITOR AND ENSURE SAFETY.
--- NOTE | 2020-06-25 07:28 | NUR ---
RN NOTE NO ACUTE CHANGES DURING MY SHIFT, REPORT GIVEN TO INCOMUNG SHIFT FOR YOAN.
[2020-06-25 07:35] LABS: CALCIUM, SERUM 8.8 mg/dL (8.5-10.1); CREATININE 0.7 mg/dL (0.6-1.3); MAGNESIUM 1.8 mg/dL (1.8-2.4)
[2020-06-25 08:00] VITALS: BP 124/62
[2020-06-25] MEDS ORDERED: DEXAMETHASONE 4 MG TABLET PO SCH (09:00)
[2020-06-25] MEDS: ASPIRIN EC 81 MG TABLET.DR PO SCH (09:07)
[2020-06-25] MEDS: DEXAMETHASONE SOD PHOSPHATE 10 MG/ML VIAL IV SCH (09:07)
[2020-06-25] MEDS: MEMANTINE HCL 5 MG TABLET PO SCH ×2 (09:08→17:25)
[2020-06-25] MEDS: GABAPENTIN 100 MG CAPSULE PO SCH ×2 (09:08→17:25)
[2020-06-25] MEDS: MONTELUKAST SODIUM (10MG) 10 MG TABLET PO SCH (09:08)
[2020-06-25] MEDS: ALBUTEROL SULFATE INH 18 GM HFA.AER.AD IH SCH (09:10)
--- NOTE | 2020-06-25 13:00 | NUR ---
MS/RN NOTE PATIENT PULLED OUT IV, NEW IV HAD TO BE INSERTED, RFA #[address] BENOIT WAS NOTIFIED OF PATIENT NOT COOPERATING, ALL OTHER PREVENTATIVE MEASURES WERE USED. DR. BENOIT ORDERED BILATERAL SOFT WRIST RESTRAINTS. ORDERS CARRIED OUT.
[2020-06-25 13:30] LABS: C-REACTIVE PROTEIN 0.5 mg/dL (0.0-0.9)
--- NOTE | 2020-06-25 19:20 | NUR ---
RN OPENING NOTE RECEIVED PATIENT IN BED RESTING ALERT ORIENTED X1 CONFUSED FORGETFUL,ON ROOM AIR O2:92% ON MONITORING FOR COVID POSITIVE AND DROPLET/CONTACT ISOLATION IV SITE IS ON LEFT HAND INTACT PATENT IV HYDRATION NORMAL SALINE,0.9% AT 75 CC/HR INCONTINENT TO BOWEL/BLADDER,SAFETY MEASURE IMPLEMENT BED ALARM IS ON,BED IN LOW POSITION AND LOCKED CONTINUE TO MONITOR
--- NOTE | 2020-06-25 19:41 | NUR ---
MS/RN CLOSING NOTE PATIENT A/O X1. PATIENT IN BED AWAKE. NO ACUTE DISTRESS NOTED. SOFT WRIST RESTRAINTS PLACED AND CHECKED EVERY 2 HOURS THROUGHOUT THE SHIFT. PATIENT ON ROOM AIR TOLERATING WELL, NO SOB NOTED. ALL SAFETY MEASURES IN PLACE WILL ENDORSE TO EMISSIONS TECHNICIAN NURSE.
[2020-06-25] MEDS: ENOXAPARIN SODIUM 40 MG/0.4 ML DISP.SYRIN SQ SCH (20:45)
[2020-06-25] MEDS: ATORVASTATIN 40 MG TABLET PO SCH (21:42)
[2020-06-25] MEDS: risperiDONE 1 MG TABLET PO SCH (21:42)
[2020-06-25] MEDS: IV NS 0.9% 1,000 ML IV PRN (22:52)
[2020-06-26 06:38] LABS: ALBUMIN 3.3 g/dL (3.4-5.0); BILIRUBIN,TOTAL 0.5 mg/dL (0.2-1.0); CREATININE 0.8 mg/dL (0.6-1.3); MAGNESIUM 1.8 mg/dL (1.8-2.4); PHOSPHORUS 2.8 mg/dL (2.5-4.9); TOTAL PROTEIN, SERUM 7.3 g/dL (6.4-8.2)
--- NOTE | 2020-06-26 06:40 | NUR ---
RN CLOSING NOTE PATIENT REMAINS ON ALERT ORIENTED X1 CONFUSED COVID POSITIVE,ON ROOM AIR O2:93% NO SOB NOT ACUTE DISTRESS NOTED,IV SITE IS ON LEFT HAND INTACT PATENT IV HYDRATION NS 0.9% RUNNING 75CC/HR ALL DUE MEDS GIVEN MD ORDERED KEPT CLEAN AND DRY ALL THE TIME,IMPLEMENTED SAFETY MEASURE,ENDORSE NEXT COMING SHIFT FOR CONTINUATION OF CARE.
[2020-06-26 06:41] LABS: HEMATOCRIT 44 % (33-45); HEMOGLOBIN 14.7 g/dL (11.5-14.8); LYMPHOCYTES # (AUTO) 0.9 /CMM (0.8-4.8); LYMPHOCYTES % (AUTO) 6.8 % (20.0-44.0); MEAN CORPUSCULAR HGB CONC 33 g/dl (31.0-36.0); MEAN CORPUSCULAR VOLUME 89 fL (82-100); MONOCYTES % (AUTO) 7.8 % (2.0-12.0); NEUTROPHILS % (AUTO) 85.4 % (43.0-81.0); PLATELET COUNT (AUTO) 247 /CMM (150-450); RED BLOOD CELL COUNT(AUTO) 4.95 MIL/uL (4.0-5.2); WHITE BLOOD COUNT (AUTO) 12.9 K/uL (4.3-11.0)
--- NOTE | 2020-06-26 07:24 | NUR ---
MS/RN OPENING NOTE RECEIVED PATIENT FROM EXECUTIVE CHAIRMAN NURSE PATIENT IS AWAKE IN BED A/O X1. DENIES ANY PAIN AT THIS TIME. NO ACUTE DISTRESS NOTED. ON ROOM AIR TOLERATING WELL, NO SOB BREATH NOTED, BREATHING EVEN NON LABORED. SAFETY MEASURES IN PLACE BED LOCKED AND IN LOWEST POSITION, CALL LIGHT WITHIN REACH. WILL CONTINUE TO MONITOR AND ENSURE SAFETY.
[2020-06-26 08:00] VITALS: BP 134/66
[2020-06-26] MEDS: GABAPENTIN 100 MG CAPSULE PO SCH ×2 (08:23→16:11)
[2020-06-26] MEDS: ASPIRIN EC 81 MG TABLET.DR PO SCH (08:23)
[2020-06-26] MEDS: MEMANTINE HCL 5 MG TABLET PO SCH ×2 (08:23→16:11)
[2020-06-26] MEDS: DEXAMETHASONE SOD PHOSPHATE 10 MG/ML VIAL IV SCH (08:23)
[2020-06-26] MEDS: MONTELUKAST SODIUM (10MG) 10 MG TABLET PO SCH (08:23)
[2020-06-26] MEDS: ALBUTEROL SULFATE INH 18 GM HFA.AER.AD IH SCH (08:26)
--- NOTE | 2020-06-26 09:18 | NUR ---
MS/RN NOTE LAB CALLED TO REPORT LAB VALUE, CK-MB 28.0. CHARGE NURSE REPORTED TO DR. STONE IN MEETING PER CHARGE NURSE. SCRIBER CONTACTED DR. STONE TO INFORM OF LAB VALUE WELL.
[2020-06-26] MEDS: IV NS 0.9% 1,000 ML IV PRN (10:53)
--- NOTE | 2020-06-26 18:10 | NUR ---
MS/RN NOTE PATIENT WAS FOUND STANDING UP IN ROOM. BLINDSTITCH LINING FELLER ANGELA INSIDE AND FOUND PATIENT HAD REMOVED SOFT WRIST RESTRAINTS, CLOTHING, AND PULLED IV OUT. RN AND BLINDSTITCH LINING FELLER ASSISTED PATIENT INTO BED AND PERFORMED CARE. RN REINSERTED NEW IV LINE. R FOREARM #22 INTACT AND PATENT. SOFT WRIST RESTRAINTS WERE PLACED BACK ON. ALL SAEFTY MEASURES IN PLACE.
--- NOTE | 2020-06-26 18:34 | NUR ---
MS/RN CLOSING NOTE PATIENT IS AWAKE IN BED A/O X1. DENIES ANY PAIN AT THIS TIME. NO ACUTE DISTRESS NOTED. ON ROOM AIR TOLERATING WELL, NO SOB BREATH NOTED, BREATHING EVEN NON LABORED. ALL NEEDS MET THROUGHOUT THE SHIFT. SAFETY MEASURES IN PLACE BED LOCKED AND IN LOWEST POSITION, CALL LIGHT WITHIN REACH. WILL ENDORSE O MACHINE WIPER NURSE.
--- NOTE | 2020-06-26 22:25 | NUR ---
REPORTS GIVEN TO BABATUNDE YU FOR CONTINUITY OF CARE.
--- NOTE | 2020-06-26 22:30 | NUR ---
MS RN NOTE, RECEIVED PATIENT FROM LISET RN, AWAKE IN BED A/O X1, BREATHING EVEN AND UNLABORED, NO SOB BREATH NOTED/ACUTE DISTRESS NOTED, ON ROOM AIR TOLERATING WELL, SAFETY MEASURES IN PLACE, BED LOCKED AND IN LOWEST POSITION, BED ALARM ON, CALL LIGHT WITHIN REACH, ON BILATERAL SOFT WRIST RESTRAINS, NO ABRNORMALITY NOTED AT SITE, NO CIRCULATION COMPROMISED, WILL CONTINUE TO MONITOR CLOSELY
[2020-06-26] MEDS: risperiDONE 1 MG TABLET PO SCH (22:33)
[2020-06-26] MEDS: ATORVASTATIN 40 MG TABLET PO SCH (22:33)
[2020-06-26] MEDS: ENOXAPARIN SODIUM 40 MG/0.4 ML DISP.SYRIN SQ SCH (22:35)
[2020-06-27 04:00] VITALS: BP 154/69
[2020-06-27 06:50] LABS: BASOPHILS % (AUTO) 0.1 % (0.0-2.0); HEMATOCRIT 41 % (33-45); HEMOGLOBIN 13.8 g/dL (11.5-14.8); LYMPHOCYTES % (AUTO) 6.8 % (20.0-44.0); MEAN CORPUSCULAR HGB CONC 34 g/dl (31.0-36.0); MEAN CORPUSCULAR VOLUME 89 fL (82-100); MONOCYTES % (AUTO) 6.9 % (2.0-12.0); NEUTROPHILS # (AUTO) 12.1 /CMM (1.8-8.9); NEUTROPHILS % (AUTO) 86.2 % (43.0-81.0); PLATELET COUNT (AUTO) 234 /CMM (150-450); WHITE BLOOD COUNT (AUTO) 14.1 K/uL (4.3-11.0)
--- NOTE | 2020-06-27 06:54 | NUR ---
MS RN CLOSING NOTE, PATIENT AWAKE IN BED A/O X1, BREATHING EVEN AND UNLABORED, ON 2LPM VIA NC, DUE TO HARD TIME BREATHING WITH EXERTION , WHEN CHANGE POSITION AND HYGIENE CHANGES, NO SOB BREATH NOTED/ACUTE DISTRESS NOTED AT THIS TIME, RIGHT AC 22G NS 0.9% AT 75ML/HR, NO S/S OF INFILTRATION, INFUSING WELL AND PATIENT TOLERATED WELL, ALL SAFETY MEASURES IN PLACE, BED LOCKED AND IN LOWEST POSITION, BED ALARM ON, CALL LIGHT WITHIN REACH, ON BILATERAL SOFT WRIST RESTRAINS, NO ABNORMALITY NOTED AT SITE, NO CIRCULATION COMPROMISED, NO SIGNIFICANT CHANGE IN CONDITION, WILL ENDORSE CONTINUITY OF CARE TO ONCOMING NURSE.
--- NOTE | 2020-06-27 07:30 | NUR ---
MS RN OPENING NOTE, PATIENT AWAKE IN BED A/O X1, BREATHING EVEN AND UNLABORED, ON 2LPM VIA NC, DUE TO HARD TIME BREATHING WITH EXERTION. V NO SOB BREATH NOTED/ACUTE DISTRESS NOTED AT THIS TIME, RIGHT AC 22G NS 0.9% AT 75ML/HR, NO S/S OF INFILTRATION, INFUSING WELL AND PATIENT TOLERATED WELL, ALL SAFETY MEASURES IN PLACE, BED LOCKED AND IN LOWEST POSITION, BED ALARM ON, CALL LIGHT WITHIN REACH, ON BILATERAL SOFT WRIST RESTRAINS, NO ABNORMALITY NOTED AT SITE, NO CIRCULATION COMPROMISED, NO SIGNIFICANT CHANGE IN CONDITION, WILL CONTINUE TO MONITOR AND PROVIDE CARE
[2020-06-27 07:44] LABS: ALBUMIN 2.9 g/dL (3.4-5.0); BILIRUBIN,TOTAL 0.5 mg/dL (0.2-1.0); CALCIUM, SERUM 8.9 mg/dL (8.5-10.1); CREATININE 0.7 mg/dL (0.6-1.3); POTASSIUM 3.9 mmol/L (3.5-5.1); TOTAL PROTEIN, SERUM 6.6 g/dL (6.4-8.2)
[2020-06-27] MEDS: ASPIRIN EC 81 MG TABLET.DR PO SCH (09:03)
[2020-06-27] MEDS: MONTELUKAST SODIUM (10MG) 10 MG TABLET PO SCH (09:03)
[2020-06-27] MEDS: GABAPENTIN 100 MG CAPSULE PO SCH ×2 (09:03→16:52)
[2020-06-27] MEDS: DEXAMETHASONE SOD PHOSPHATE 10 MG/ML VIAL IV SCH (09:03)
[2020-06-27] MEDS: MEMANTINE HCL 5 MG TABLET PO SCH ×2 (09:03→16:52)
[2020-06-27] MEDS: ALBUTEROL SULFATE INH 18 GM HFA.AER.AD IH SCH (09:03)
--- NOTE | 2020-06-27 18:27 | NUR ---
MS RN OPENING NOTE, PATIENT AWAKE IN BED A/O X1, BREATHING EVEN AND UNLABORED, ON 2LPM VIA NC, DUE TO HARD TIME BREATHING WITH EXERTION. V NO SOB BREATH NOTED/ACUTE DISTRESS NOTED AT THIS TIME, RIGHT AC 22G NS 0.9% AT 75ML/HR, NO S/S OF INFILTRATION, INFUSING WELL AND PATIENT TOLERATED WELL, ALL SAFETY MEASURES IN PLACE, BED LOCKED AND IN LOWEST POSITION, BED ALARM ON, CALL LIGHT WITHIN REACH, ON BILATERAL SOFT WRIST RESTRAINS, NO ABNORMALITY NOTED AT SITE, NO CIRCULATION COMPROMISED, NO SIGNIFICANT CHANGE IN CONDITION, WILL ENDORSE TO SHIP MANAGER NURSE FOR YOAN
--- NOTE | 2020-06-27 19:50 | NUR ---
RN NOTE RECEIVED PT IN BED A/O X1, CONFUSED ON 4 L VIA NC SATING 97%. PT HAS UNLABORED BREATHING. SAFETY MEASURES IN PLACE.
[2020-06-27 20:00] VITALS: BP 156/54
[2020-06-27] MEDS: ENOXAPARIN SODIUM 40 MG/0.4 ML DISP.SYRIN SQ SCH (21:06)
[2020-06-27] MEDS: ATORVASTATIN 40 MG TABLET PO SCH (21:48)
[2020-06-27] MEDS: risperiDONE 1 MG TABLET PO SCH (21:48)
[2020-06-28 04:00] VITALS: BP 154/72
--- NOTE | 2020-06-28 06:32 | NUR ---
RECEIVED LAB CK MB 7.9 FROM JO[address] DE JESUS GIL DR[address]
--- NOTE | 2020-06-28 07:20 | NUR ---
RN NOTE NO ACUTE CHANGES REPORT GIVEN TO INCOMING SHIFT FOR YOAN
--- NOTE | 2020-06-28 07:30 | NUR ---
MS RN OPENING NOTE, PATIENT AWAKE IN BED A/O X1, BREATHING EVEN AND UNLABORED, ON 2LPM VIA NC, DUE TO HARD TIME BREATHING WITH EXERTION. NO SOB BREATH NOTED/ACUTE DISTRESS NOTED AT THIS TIME, RIGHT AC 22G, NO S/S OF INFILTRATION, INFUSING WELL AND PATIENT TOLERATED WELL, ALL SAFETY MEASURES IN PLACE, BED LOCKED AND IN LOWEST POSITION, BED ALARM ON, CALL LIGHT WITHIN REACH, ON BILATERAL SOFT WRIST RESTRAINS, NO ABNORMALITY NOTED AT SITE, NO CIRCULATION COMPROMISED, NO SIGNIFICANT CHANGE IN CONDITION, WILL CONTINUE TO MONITOR AND PROVIDE CARE
[2020-06-28] MEDS: MEMANTINE HCL 5 MG TABLET PO SCH ×2 (08:06→16:18)
[2020-06-28] MEDS: DEXAMETHASONE SOD PHOSPHATE 10 MG/ML VIAL IV SCH (08:06)
[2020-06-28] MEDS: MONTELUKAST SODIUM (10MG) 10 MG TABLET PO SCH (08:06)
[2020-06-28] MEDS: ALBUTEROL SULFATE INH 18 GM HFA.AER.AD IH SCH (08:06)
[2020-06-28] MEDS: GABAPENTIN 100 MG CAPSULE PO SCH ×2 (08:06→16:18)
[2020-06-28] MEDS: ASPIRIN EC 81 MG TABLET.DR PO SCH (08:06)
[2020-06-28] MEDS: QUETIAPINE FUMARATE 25 MG TABLET PO PRN (14:09)
--- NOTE | 2020-06-28 18:34 | NUR ---
MS RN OPENING NOTE, PATIENT AWAKE IN BED A/O X1, BREATHING EVEN AND UNLABORED. OXYGEN TITRATED DOWN AND TURNED OFF. PATIENT CURRENTLY ON ROOM AIR WITH O2 SATURATION 97%. NO SOB BREATH NOTED/ACUTE DISTRESS NOTED AT THIS TIME. pATIENT VERY RESTLESS THROUGHOUT THE SHIFT, PULLED IV LINE OUT. ALL SAFETY MEASURES IN PLACE, BED LOCKED AND IN LOWEST POSITION, BED ALARM ON, CALL LIGHT WITHIN REACH, ON BILATERAL SOFT WRIST RESTRAINS, NO ABNORMALITY NOTED AT SITE, NO CIRCULATION COMPROMISED, NO SIGNIFICANT CHANGE IN CONDITION, WILL ENDORSE TO APPLICATIONS PACKAGER NURSE FOR YOAN.
--- NOTE | 2020-06-28 19:30 | NUR ---
MS RN OPENING NOTE RECEIVED PATIENT IN BED. A/OX1. TOLERATING ROOM AIR. RESPIRATIONS ARE EVEN AND UNLABORED. NO S/S SOB NOTED. NO CO PAIN AT THIS TIME. IN NO APPARENT DISTRESS. NO IV ACCESS. BILATERAL SOFT WRIST RESTRAINTS PRESENT, GOOD CIRCULATION, REDNESS/ BRUISING NOTED. BED IS LOW AND LOCKED. HOB ELEVATED IN SEMI FOWLERS, CALL LIGHT WITHIN REACH. WILL CONTINUE TO MONITOR THROUGHOUT SHIFT.
[2020-06-28 20:00] VITALS: BP 158/95
[2020-06-28] MEDS: ATORVASTATIN 40 MG TABLET PO SCH (21:34)
[2020-06-28] MEDS: risperiDONE 1 MG TABLET PO SCH (21:34)
[2020-06-28] MEDS: ENOXAPARIN SODIUM 40 MG/0.4 ML DISP.SYRIN SQ SCH (21:35)
[2020-06-29] MEDS: HYDROCODONE/APAP 5/325MG TABLET PO PRN (06:28)
--- NOTE | 2020-06-29 07:06 | NUR ---
RN OPENING NOTE RECEIVED PT AWAKE IN BED AT THIS TIME. AOX2-3. VINCENTIAN AND VIETNAMESE SPEAKING, PT ABLE TO VERBALIZE NEEDS. PT STABLE ON RA. NO S/S OF ANY ACUTE DISTRESS NOTED, NO C/O PAIN AT THIS TIME. IV ACCESS NOTED RIGHT WRIST G#22, INTACT PATENT AND FLUSHING WELL. PT NOTED ON BILATERAL SOFT WRIST RESTRAINTS, SKIN AROUND RESTRAINTS INTACT, GOOD CIRCULATION NOTED, PULSES ARE PRESENT BILATERALLY, CAPILLARY REFILL <3SECONDS. ASPIRATIONS AND SAFETY PRECAUTIONS IN PLACE AND MAINTAINED AT ALL TIMES. BED IN LOWEST LOCKED POSITION, SIDE RAILS UP, HOB ELEVATED, TABLE AND CALL LIGHT WITHIN REACH. WILL CONTINUE TO MONITOR.
[2020-06-29 07:18] LABS: BASOPHILS % (AUTO) 0.1 % (0.0-2.0); HEMATOCRIT 47 % (33-45); HEMOGLOBIN 15.2 g/dL (11.5-14.8); LYMPHOCYTES # (AUTO) 1.4 /CMM (0.8-4.8); LYMPHOCYTES % (AUTO) 12.9 % (20.0-44.0); MEAN CORPUSCULAR HGB CONC 33 g/dl (31.0-36.0); MEAN CORPUSCULAR VOLUME 89 fL (82-100); MONOCYTES # (AUTO) 1.1 /CMM (0.1-1.30); MONOCYTES % (AUTO) 10.2 % (2.0-12.0); NEUTROPHILS # (AUTO) 8.5 /CMM (1.8-8.9); NEUTROPHILS % (AUTO) 76.8 % (43.0-81.0); PLATELET COUNT (AUTO) 358 /CMM (150-450); RED BLOOD CELL COUNT(AUTO) 5.22 MIL/uL (4.0-5.2)
--- NOTE | 2020-06-29 07:47 | NUR ---
MS RN CLOSING NOTE PATIENT RECEIVED IN BED. A/OX1. REMAINS TOLERATING ROOM AIR. NO RESP DISTRESS. C/O PAIN IN RIGHT LEG, GAVE NORCO. AND ICE BAG. INFORMED DAY RN PATIENT HAS A HEMATOMA OR A DISLOCATION. PLEASE F/U WITH MD. PATIENT DID NOT HAVE A FALL ON MY SHIFT SHE WAS RESTRAINED. NO DISTRESS. IV ACCESS IN RIGHT WRIST #22 PATENT AND SALINE LOCKED. BILATERAL SOFT WRIST RESTRAINTS MAINTAINED GOOD CAP REFILL, REDNESS/ BRUISING NOTED. BED REMAINS LOW AND LOCKED. HOB ELEVATED IN SEMI FOWLERS, CALL LIGHT WITHIN REACH. WILL ENDORSE TO NEXT SHIFT.
[2020-06-29 08:28] LABS: CALCIUM, SERUM 9.1 mg/dL (8.5-10.1); CREATININE 0.8 mg/dL (0.6-1.3); POTASSIUM 3.8 mmol/L (3.5-5.1)
[2020-06-29] MEDS: MEMANTINE HCL 5 MG TABLET PO SCH ×2 (08:48→16:28)
[2020-06-29] MEDS: GABAPENTIN 100 MG CAPSULE PO SCH ×2 (08:48→16:27)
[2020-06-29] MEDS: DEXAMETHASONE SOD PHOSPHATE 10 MG/ML VIAL IV SCH (08:48)
[2020-06-29] MEDS: ASPIRIN EC 81 MG TABLET.DR PO SCH (08:48)
[2020-06-29] MEDS: MONTELUKAST SODIUM (10MG) 10 MG TABLET PO SCH (08:48)
[2020-06-29] MEDS: ALBUTEROL SULFATE INH 18 GM HFA.AER.AD IH SCH (08:59)
--- NOTE | 2020-06-29 17:40 | NUR ---
PT PULLED OUT IV ACCESS. PRESSURED GAUZE APPLIED AND TAPED. NO SIGN OF BLEEDING NOTED. WILL CONTINUE TO MONITOR
--- NOTE | 2020-06-29 17:53 | NUR ---
INSERTED IV IN LEFT LEG C#22, GOOD BLOOD RETURN NOTED, INTACT PATENT AND FLUSHING WELL. PT TOLERATED WELL. WILL CONTINUE WITH PLAN OF CARE
--- NOTE | 2020-06-29 18:40 | NUR ---
RN CLOSING NOTES PT AWAKE IN BED AT THIS TIME. PT REMAINED STABLE THROUGHOUT SHIFT. PT REMAINED STABLE RA SATURATING @ 94% AT THIS TIME. ALL CARE, NEED, MEDICATIONS AND TREATMENT ADMINISTERED ANTICIPATED PER ORDER. PT KEPT CLEAN AND DRY. BED BATH GIVEN, LINEN CHANGED AND KEPT CLEAN. BILATERAL SOFT WRIST RESTRAINTS ASSESSED Q2HRS AND PRN, SKIN AROUND RESTRAINS INTACT, GOOD CIRCULATION NOTES, PULSES ARE PRESENT BILATERALLY, CAPILLARY REFILL<3SECONDS. ASPIRATION, RESPIRATION AND SAFETY PRECAUTION IN PLACE AND MAINTAINED AT ALL TIMES. BED IN LOWEST LOCKED POSITION, HOB ELEVATED, SIDE RAILS UP X 2, CALL LIGHT AND TABLE WITHIN REACH. WILL ENDORSE TO [employer] OFF[employer]ER NURSE FOR [employer]OAN
--- NOTE | 2020-06-29 19:30 | NUR ---
MS RN OPENING NOTE RECEIVED PATIENT IN BED. A/OX1. TOLERATING ROOM AIR. RESPIRATIONS ARE EVEN AND UNLABORED. NO S/S SOB NOTED. NO C/O PAIN AT THIS TIME. IN NO APPARENT DISTRESS. IV ACCESS LLE #22 PATENT AND SALINE LOCKED. BILATERAL SOFT WRIST RESTRAINTS PRESENT, GOOD CIRCULATION NOTED, BRUISING ON BOTH WRIST NOTED. BED IS LOW AND LOCKED. HOB ELEVATED IN SEMI FOWLERS, CALL LIGHT WITHIN REACH. WILL CONTINU TO MONITOR THROUGHOUT SHIFT.
[2020-06-29 20:00] VITALS: BP 160/74
[2020-06-29 21:07] VITALS: BP 170/81
--- NOTE | 2020-06-29 21:21 | NUR ---
MS RN NOTE NOTIFIED CHEMICAL TANK WORKER MD DR. CAMACHO THAT PATIENT BP IS 170/81. NO PRN BP MED ORDERED. MD TELEPHONE ORDER HYDRALAZINE 25MG PO Q6HR PRN FOR SBP GREATER THAN 160. ORDER READ BACK NOTED AND CARRIED OUT.
[2020-06-29] MEDS ORDERED: hydrALAZINE HCL 25 MG TABLET PO PRN (21:30)
--- NOTE | 2020-06-29 21:51 | NUR ---
ms rn note alled alarm installation technician pharmacy, cardinal to verify medication.
[2020-06-29] MEDS: risperiDONE 1 MG TABLET PO SCH (21:53)
[2020-06-29] MEDS: ATORVASTATIN 40 MG TABLET PO SCH (21:53)
[2020-06-29] MEDS: ENOXAPARIN SODIUM 40 MG/0.4 ML DISP.SYRIN SQ SCH (21:55)
[2020-06-30 00:29] VITALS: BP 107/56
[2020-06-30 04:00] VITALS: BP 135/73
[2020-06-30 06:17] LABS: BASOPHILS % (AUTO) 0.3 % (0.0-2.0); EOSINOPHILS % (AUTO) 0.1 % (0.0-6.0); HEMATOCRIT 41 % (33-45); HEMOGLOBIN 13.7 g/dL (11.5-14.8); LYMPHOCYTES # (AUTO) 1.5 /CMM (0.8-4.8); LYMPHOCYTES % (AUTO) 13.9 % (20.0-44.0); MEAN CORPUSCULAR HGB CONC 34 g/dl (31.0-36.0); MEAN CORPUSCULAR VOLUME 88 fL (82-100); MONOCYTES # (AUTO) 1.2 /CMM (0.1-1.30); NEUTROPHILS % (AUTO) 74.7 % (43.0-81.0); PLATELET COUNT (AUTO) 360 /CMM (150-450); RED BLOOD CELL COUNT(AUTO) 4.62 MIL/uL (4.0-5.2); WHITE BLOOD COUNT (AUTO) 10.7 K/uL (4.3-11.0)
--- NOTE | 2020-06-30 06:27 | NUR ---
MS RN CLOSING NOTE PATIENT RESTING IN BED. A/OX1. REMAINS TOLERATING ROOM AIR. O2 SAT 94%. NO RESP DISTRESS. NO C/O PAIN THROUGHOUT SHIFT. NO DISTRESS. IV ACCESS MAINTAINED IN LLE #22. BILATERAL SOFT WRIST RESTRAINTS MAINTAINED, GOOD CAP REFILL, BRUISING / REDNESS STILL VISIBLE. BED REMAINS LOW AND LOCKED. HOB ELEVATED IN SEMI FOWLERS, CALL LIGHT WITHIN REACH. WILL ENDORSE TO NEXT SHIFT
[2020-06-30 07:19] LABS: CALCIUM, SERUM 8.6 mg/dL (8.5-10.1); CREATININE 0.7 mg/dL (0.6-1.3); POTASSIUM 3.9 mmol/L (3.5-5.1)
--- NOTE | 2020-06-30 07:40 | NUR ---
MS/RN OPENING NOTES RECEIVED PATIENT ON BED AWAKE ALERT AND ORIENTED X1. PATIENT IS ON ROOM AIR SATURATING WELL. PATIENT IN NO APPARENT RESPIRATORY DISTRESS NOTED. NO SIGN AND SYMPTOM OF PAIN NOTED AT THIS TIME. WILL CONTINUE TO MONITOR.
--- NOTE | 2020-06-30 07:59 | NUR ---
MS FINE CLOSING NOTE PATIENT RESTING IN BED, AWAKE, A/OX1. PATIENT IS ON ROOM AIR SATURATING WELL. PATIENT IN NO APPARENT RESPIRATORY DISTRESS NOTED. NO COMPLAINED OF PAIN AT THIS TIME. WILL CONTINUE TO MONITOR. Addendum: 06/30/20 at 1010 by TOÑO CALIXTO RN ERROR
[2020-06-30] MEDS: DEXAMETHASONE SOD PHOSPHATE 10 MG/ML VIAL IV SCH (09:16)
[2020-06-30] MEDS: ASPIRIN EC 81 MG TABLET.DR PO SCH (09:16)
[2020-06-30] MEDS: GABAPENTIN 100 MG CAPSULE PO SCH ×2 (09:16→16:49)
[2020-06-30] MEDS: MONTELUKAST SODIUM (10MG) 10 MG TABLET PO SCH (09:16)
[2020-06-30] MEDS: MEMANTINE HCL 5 MG TABLET PO SCH ×2 (09:16→16:49)
[2020-06-30] MEDS: ALBUTEROL SULFATE INH 18 GM HFA.AER.AD IH SCH (10:22)
--- NOTE | 2020-06-30 18:34 | NUR ---
MS RN CLOSING NOTES PATIENT IS ON BED. ALERT AND ORIENTED X1. PATIENT IS ON ROOM AIR SATURATION 95%. NO APPARENT RESPIRATORY DISTRESS NOTED. NO SIGN AND SYMPTOM OF PAIN AT THIS TIME. SEEN AND EXAMINED BY MD WITH ORDERS MADE AND CARRIED OUT. ALL DUE MEDICATIONS WAS GIVEN. IV ACCESS MAINTAINED IN LLE #22 G PATENT AND INTACT. BILATERAL SOFT WRIST RESTRAINTS MAINTAINED, GOOD CAP REFILL, BRUISING / REDNESS STILL VISIBLE. BED REMAINS LOW AND LOCKED. HOB ELEVATED IN SEMI FOWLERS, CALL LIGHT WITHIN REACH. WILL ENDORSE TO HANDHOLE MACHINE OPERATOR FOR YOAN.
--- NOTE | 2020-06-30 19:25 | NUR ---
RECEIVED PATIENT IN BED. A/OX1. ON ROOM AIR SPO2 94% RESPIRATIONS ARE EVEN AND UNLABORED. NO S/S SOB NOTED. NO PAIN COMPLAINED AT THIS TIME. IN NO APPARENT DISTRESS. IV ACCESS LLE #22 PATENT AND SALINE LOCKED. BILATERAL SOFT WRIST RESTRAINTS PRESENT, GOOD CIRCULATION NOTED, BRUISING ON BOTH WRIST NOTED. BED IS LOW AND LOCKED. HOB ELEVATED IN SEMI FOWLERS, CALL LIGHT WITHIN REACH. WILL CONTINUE TO MONITOR .
[2020-06-30] MEDS: ATORVASTATIN 40 MG TABLET PO SCH (21:03)
[2020-06-30] MEDS: risperiDONE 1 MG TABLET PO SCH (21:03)
[2020-06-30] MEDS: ENOXAPARIN SODIUM 40 MG/0.4 ML DISP.SYRIN SQ SCH (21:03)
[2020-06-30 22:29] VITALS: BP 134/71
[2020-07-01 04:00] VITALS: BP 144/86
--- NOTE | 2020-07-01 06:51 | NUR ---
PT ON BED ASLEEP NO SIGN OF RESPIRATORY DISTRESS, NO COMPLAINED OF PAIN NO SIGNIFICANT CHANGES ON CONDITION NOTED BILATERAL WRIST SOFT RESTRAINTS STILL ON PLACE ALL NEEDS ATTENDED BED ON LOWEST POSITION AND LOCKED SIDE RAILS UP X 2 CALL LIGHT WITHIN REACH WILL ENDORSED TO AM SHIFT NURSE
[2020-07-01 06:59] LABS: BASOPHILS % (AUTO) 0.2 % (0.0-2.0); HEMATOCRIT 47 % (33-45); HEMOGLOBIN 15.3 g/dL (11.5-14.8); LYMPHOCYTES # (AUTO) 1.2 /CMM (0.8-4.8); LYMPHOCYTES % (AUTO) 8.8 % (20.0-44.0); MEAN CORPUSCULAR HGB CONC 33 g/dl (31.0-36.0); MEAN CORPUSCULAR VOLUME 90 fL (82-100); MONOCYTES # (AUTO) 1.3 /CMM (0.1-1.30); MONOCYTES % (AUTO) 9.2 % (2.0-12.0); NEUTROPHILS # (AUTO) 11.3 /CMM (1.8-8.9); NEUTROPHILS % (AUTO) 81.8 % (43.0-81.0); PLATELET COUNT (AUTO) 445 /CMM (150-450); RED BLOOD CELL COUNT(AUTO) 5.23 MIL/uL (4.0-5.2); WHITE BLOOD COUNT (AUTO) 13.9 K/uL (4.3-11.0)
--- NOTE | 2020-07-01 07:36 | NUR ---
MS/RN OPENING NOTE PATIENT IN BED ASLEEP EASILY WAKEN UP. PATIENT IS A/O X1. NO ACUTE DISTRESS NOTED AT THIS TIME. PATIENT ON ROOM AIR TOLERATING WELL. NO SOB NOTED, BREATHING EVEN, NON LABORED. SAFETY MEASURES IN PLACE, BED LOCKED AND IN LOWEST POSITION, CALL LIGHT WITHIN REACH. WILL CONTINUE TO MONITOR AND ENSURE SAFETY.
[2020-07-01 07:41] LABS: CALCIUM, SERUM 9.1 mg/dL (8.5-10.1); CARBON DIOXIDE 30 mmol/L (21-32); CHLORIDE 104 mmol/L (98-107); CREATININE 0.8 mg/dL (0.6-1.3); GLUCOSE 95 mg/dL (74-106); MAGNESIUM 2.1 mg/dL (1.8-2.4); PHOSPHORUS 3.9 mg/dL (2.5-4.9); POTASSIUM 3.7 mmol/L (3.5-5.1); SODIUM SERUM 142 mmol/L (136-145); UREA NITROGEN, BLOOD 30 mg/dL (7-18)
[2020-07-01] MEDS: GABAPENTIN 100 MG CAPSULE PO SCH ×2 (08:20→16:23)
[2020-07-01] MEDS: MONTELUKAST SODIUM (10MG) 10 MG TABLET PO SCH (08:20)
[2020-07-01] MEDS: DEXAMETHASONE SOD PHOSPHATE 10 MG/ML VIAL IV SCH (08:20)
[2020-07-01] MEDS: ASPIRIN EC 81 MG TABLET.DR PO SCH (08:21)
[2020-07-01] MEDS: MEMANTINE HCL 5 MG TABLET PO SCH ×2 (08:21→16:23)
[2020-07-01] MEDS: ALBUTEROL SULFATE INH 18 GM HFA.AER.AD IH SCH (08:21)
[2020-07-01 12:00] VITALS: BP 181/84
[2020-07-01] MEDS ORDERED: DEXA4TAB PO (12:56)
--- NOTE | 2020-07-01 15:40 | NUR ---
MS/RN NOTE CALLED [facility] TO GIVE REPORT TO [place]EL[place] FOR PATIENT TO BE ADMITTED. NOTIFIED FAMILY OF PATIENT OF DISCHARGE AND TRANSFER TO [facility]. AWAITING TRANSPORT.
--- NOTE | 2020-07-01 17:24 | NUR ---
MS/RN DISCHARGED PATIENT WAS DISCHARGED TO [facility] IN MEDICALLY STABLE CONDITION. IV HEPLOCK REMOVED, PRESSURE DRESSING APPLIED. NAME BAND REMOVED. ALL PERSONAL BELONGING ACCOUNTED FOR AND SIGNED OFF IN BELONGING LIST. REPORT GIVEN TO PARAMEDICS AND SNF. PROVIDED COPY OF EXIT CARE. PATIENT WA ESCORTED TO MAIN LOBBY BY [facility] WITH 2 PARMEDICS.
== END 2020-07-01 17:20 | DRG 177 ==
LOC: ER 12:24 → TELE1 15:04 → MEDSG1 23:52
PROVIDERS: ATTEND Nurse Practitioner Acute Care
DX: U07.1 COVID-19 (principal); G93.41 Metabolic encephalopathy; J12.82 Pneumonia due to coronavirus disease 2019; N17.0 Acute kidney failure with tubular necrosis; I50.32 Chronic diastolic (congestive) heart failure; N39.0 Urinary tract infection, site not specified; E44.1 Mild protein-calorie malnutrition; J44.0 Chronic obstructive pulmonary disease with (acute) lower respiratory infection; J98.11 Atelectasis; F03.90 Unspecified dementia, unspecified severity, without behavioral disturbance, psychotic disturbance, mood disturbance, and anxiety; I25.10 Atherosclerotic heart disease of native coronary artery without angina pectoris; I11.0 Hypertensive heart disease with heart failure; J44.9 Chronic obstructive pulmonary disease, unspecified; E66.9 Obesity, unspecified; E78.5 Hyperlipidemia, unspecified; K21.9 Gastro-esophageal reflux disease without esophagitis; M19.90 Unspecified osteoarthritis, unspecified site; I70.0 Atherosclerosis of aorta; J45.909 Unspecified asthma, uncomplicated; Z79.82 Long term (current) use of aspirin; Z79.51 Long term (current) use of inhaled steroids; Z79.899 Other long term (current) drug therapy
CPT/HCPCS: 36415; 70450-TC; 71045-TC; 73501; 80048-TC; 80053-TC; 80061-TC; 80076-TC; 82140-TC; 82550-TC; 82553; 82728-TC; 82962-TC; 83605-TC; 83615-TC; 83735-TC; 83880; 84100-TC; 84443-TC; 84484-TC; 85025-TC; 85378-TC; 85730-TC; 86140-TC; 87040-TC; 87081-TC; 87086-TC; 97116-TC; 97530-TC; C9803; G0378; G0480; J1100; J1650; J7030; U0003

== ENCOUNTER 2020-09-03 17:28 | Inpatient (IN) | payer MEDICARE, OTHER ==
[~2020-09-03] VITALS: Ht 162.6 cm; Wt 81.2 kg
[~2020-09-03 17:28] MED LIST changes: +ASPI-495 PO; +DEXA4TAB PO; -ESOM40CA PO; +GABA-532 PO; +RISP1TAB97 PO
--- NOTE | 2020-09-03 17:35 | NUR ---
[id number], from board and care, weak, foul smelly urine and warm to touch. Patient a/ox1, breathing even and unlabored, no sob noted. Needs attended.
[2020-09-03] MEDS ORDERED: RISP0.2515 PO (17:39)
[2020-09-03] MEDS ORDERED: ACETAMINOPHEN 325 MG TABLET PO ONE (18:00)
[2020-09-03] MEDS ORDERED: ACETAMINOPHEN 325 MG TABLET ONE (18:02)
[2020-09-03 18:19] LABS: BASOPHILS # (AUTO) 0.1 /CMM (0.0-0.2); BASOPHILS % (AUTO) 0.5 % (0.0-2.0); EOSINOPHILS % (AUTO) 0.2 % (0.0-6.0); HEMATOCRIT 37 % (33-45); HEMOGLOBIN 12.1 g/dL (11.5-14.8); LYMPHOCYTES # (AUTO) 1.5 /CMM (0.8-4.8); LYMPHOCYTES % (AUTO) 14.6 % (20.0-44.0); MEAN CORPUSCULAR HGB CONC 33 g/dl (31.0-36.0); MEAN CORPUSCULAR VOLUME 92 fL (82-100); MONOCYTES # (AUTO) 0.9 /CMM (0.1-1.30); NEUTROPHILS # (AUTO) 7.7 /CMM (1.8-8.9); NEUTROPHILS % (AUTO) 75.7 % (43.0-81.0); PLATELET COUNT (AUTO) 325 /CMM (150-450); RED BLOOD CELL COUNT(AUTO) 3.97 MIL/uL (4.0-5.2); WHITE BLOOD COUNT (AUTO) 10.1 K/uL (4.3-11.0)
[2020-09-03 18:29] LABS: CALCIUM, SERUM 8.7 mg/dL (8.5-10.1); CARBON DIOXIDE 27 mmol/L (21-32); CHLORIDE 108 mmol/L (98-107); GLUCOSE 114 mg/dL (74-106); POTASSIUM 3.6 mmol/L (3.5-5.1); SODIUM SERUM 143 mmol/L (136-145); UREA NITROGEN, BLOOD 27 mg/dL (7-18)
--- NOTE | 2020-09-03 18:37 | NUR ---
PATIENT NOTED TO HAVE AN ABNORMAL RIGHT HIP, PATIENT DENIES PAIN, DR. BRUSH MADE AWARE AND EVALUATED PATIENT'S RIGHT HIP. RECEIVED ORDER FOR HIP XRAY.
[2020-09-03 18:40] LABS: BILIRUBIN,URINE Negative (NEGATIVE); COLOR,URINE YELLOW (YELLOW); LEUKOCYTE ESTERASE ,URINE Small (NEGATIVE); NITRITE, URINE Negative (NEGATIVE); PH,URINE 8.5 (5.0-8.0); PROTEIN,URINE 100 mg/dl (NEGATIVE); UGLUCOSE Negative (NEGATIVE); UROBILINOGEN,URINE 0.2 EU/dL (0.2)
[2020-09-03 18:43] LABS: ALANINE AMINOTRANSFERASE 14 U/L (12-78); ALKALINE PHOSPHATASE 50 U/L (46-116); ASPARTATE AMINOTRANSFERASE 20 U/L (15-37); BILIRUBIN,DIRECT 0.1 mg/dL (0.0-0.2); BILIRUBIN,TOTAL 0.7 mg/dL (0.2-1.0); TOTAL PROTEIN, SERUM 6.6 g/dL (6.4-8.2)
[2020-09-03 18:52] LABS: BACTERIA,URINE 2+ /HPF (None Seen); SQUAMOUS EPITHELIAL CELL,UR Few /HPF (None Seen)
[2020-09-03] MEDS ORDERED: MEROPENEM 1,000 MG in IV NS 0.9% 100 ML IV ONE (19:00)
--- NOTE | 2020-09-03 19:20 | NUR ---
COVID SWAB SENT. ENDORSED TO [facility].
--- NOTE | 2020-09-03 19:34 | NUR ---
TOOK OVER PT CARE. PT AAOX1 TO NAME. NOTED HR 50-54, ER MD AWARE. ALSO NOTED HYPOTENSIVE @ 91/45. AWAITING ER MD FOR ORDERS.
[2020-09-03] MEDS ORDERED: IV NS 0.9% 1,000 ML IV ONE (20:00)
--- NOTE | 2020-09-03 20:01 | NUR ---
LAB CALLED REGARDING NEGATIVE COVID RESULT.
--- NOTE | 2020-09-03 20:15 | NUR ---
M/S 304-2
--- NOTE | 2020-09-03 20:40 | NUR ---
REPORT GIVEN TO SAMI FINE FOR YOAN
[2020-09-03 20:44] VITALS: BP 116/60
[2020-09-03 21:00] VITALS: BP 116/60
[2020-09-03] MEDS ORDERED: ZOLPIDEM TARTRATE 5 MG TABLET PO PRN (21:00)
[2020-09-03] MEDS ORDERED: Z GUARD REMEDY 2 OZ OINT TP PRN (21:00)
[2020-09-03] MEDS ORDERED: ONDANSETRON HCL/PF 4 MG/2 ML VIAL IVP PRN (21:00)
[2020-09-03] MEDS ORDERED: ACETAMINOPHEN 325 MG TABLET PO PRN (21:00)
[2020-09-03] MEDS ORDERED: HYDROCODONE/APAP 5/325MG TABLET PO PRN (21:00)
[2020-09-03] MEDS ORDERED: MAG HYDROX/AL HYDROX/SIMETH 30 ML UDC PO PRN (21:00)
[2020-09-03] MEDS ORDERED: MORPHINE SULFATE INJ 2 MG/ML DISP.SYRIN IV PRN (21:00)
[2020-09-03] MEDS ORDERED: MAGNESIUM HYDROXIDE 30 ML UDC PO PRN (21:00)
[2020-09-03] MEDS: IV NS 0.9% 1,000 ML IV PRN (21:40)
[2020-09-03] MEDS: AZITHROMYCIN 500 MG in IV D5W 250 ML IV SCH (21:41)
[2020-09-03] MEDS: ATORVASTATIN 40 MG TABLET PO SCH (21:41)
[2020-09-03] MEDS: ENOXAPARIN SODIUM 40 MG/0.4 ML DISP.SYRIN SQ SCH (21:43)
[2020-09-03] MEDS: CEFTRIAXONE 1 G in IV D5W 50 ML IV SCH (22:44)
--- NOTE | 2020-09-04 05:39 | NUR ---
MS RN CLOSING NOTES: PATIENT IN BED, ASLEEP, NO S/S OF DISTRESS NOTED. CALL LIGHT WITHIN REACH. BED ALARM ON. BED IN LOWEST AND LOCKED POSITION. TURNED AND REPOSITIONED [id number]. OFFLOADED.
[2020-09-04 06:20] LABS: BASOPHILS % (AUTO) 0.5 % (0.0-2.0); EOSINOPHILS % (AUTO) 1.3 % (0.0-6.0); HEMATOCRIT 36 % (33-45); HEMOGLOBIN 12.1 g/dL (11.5-14.8); LYMPHOCYTES # (AUTO) 1.5 /CMM (0.8-4.8); LYMPHOCYTES % (AUTO) 15.5 % (20.0-44.0); MEAN CORPUSCULAR HGB CONC 33 g/dl (31.0-36.0); MEAN CORPUSCULAR VOLUME 93 fL (82-100); MONOCYTES % (AUTO) 10.2 % (2.0-12.0); NEUTROPHILS # (AUTO) 6.8 /CMM (1.8-8.9); NEUTROPHILS % (AUTO) 72.5 % (43.0-81.0); PLATELET COUNT (AUTO) 287 /CMM (150-450); RED BLOOD CELL COUNT(AUTO) 3.92 MIL/uL (4.0-5.2); WHITE BLOOD COUNT (AUTO) 9.4 K/uL (4.3-11.0)
[2020-09-04 07:18] LABS: ALBUMIN 2.6 g/dL (3.4-5.0); BILIRUBIN,TOTAL 0.5 mg/dL (0.2-1.0); CALCIUM, SERUM 8.6 mg/dL (8.5-10.1); CREATININE 0.8 mg/dL (0.6-1.3); PHOSPHORUS 3.2 mg/dL (2.5-4.9); POTASSIUM 3.7 mmol/L (3.5-5.1); TOTAL PROTEIN, SERUM 6.1 g/dL (6.4-8.2)
[2020-09-04 07:44] LABS: THYROID STIMULATING HORMONE 1.337 uIU/mL (0.358-3.74)
[2020-09-04 08:00] VITALS: BP 122/84
--- NOTE | 2020-09-04 08:30 | NUR ---
MS RN OPENING NOTES RESIDENT IN BED AWAKE, ALERT, ORIENTED X1 WITH PERIOD OF CONFUSION AND FORGETFULNESS, REDIRECTED PROVIDED. ABLE TO MAKE NEEDS KNOWN, VERBALLY RESPONSIVE. NO COMPLAINT OF PAIN OR DISCOMFORT NOTED. BREATHING EVEN AND NON-LABORED. KEPT CLEAN AND DRY. ALL NEEDS MET TO PROMPTLY. CALL LIGHT WITHIN EASY REACH.
[2020-09-04] MEDS ORDERED: FUROSEMIDE 40 MG TABLET PO SCH (09:00)
[2020-09-04] MEDS: ASPIRIN EC 81 MG TABLET.DR PO SCH (09:16)
[2020-09-04] MEDS: METOPROLOL SUCCINATE 25 MG TAB.SR.24H PO SCH (09:17)
[2020-09-04] MEDS: MEMANTINE HCL 5 MG TABLET PO SCH (09:18)
[2020-09-04] MEDS: LOSARTAN POTASSIUM 50 MG TABLET PO SCH (09:18)
[2020-09-04 15:45] VITALS: BP 135/55
[2020-09-04] MEDS: ATORVASTATIN 40 MG TABLET PO SCH (17:47)
[2020-09-04] MEDS: GABAPENTIN 100 MG CAPSULE PO SCH (17:47)
[2020-09-04] MEDS: MONTELUKAST SODIUM (10MG) 10 MG TABLET PO SCH (17:47)
[2020-09-04] MEDS: risperiDONE 0.25 MG TABLET PO SCH (17:48)
--- NOTE | 2020-09-04 18:27 | NUR ---
MS RN CLOSING NOTES PATIENT IN BED WATCHING TV, ALERT, ORIENTED WITH PERIOD OF CONFUSION AND FORGETFULNESS, REALITY ORIENTATION PROVIDED. ABLE TO UNDERSTAND SIMPLE LIBERIAN, VERBALLY RESPONSIVE, ABLE TO MAKE NEEDS KNOWN. DENIES PAIN OR DISCOMFORT AT THIS TIME. ALL DUE MEDS ARE GIVEN ORDERED. KEPT CLEAN AND DRY. GOOD PERICARE PROVIDED. SAFETY MEASURES IMPLEMENTED; PLACED BED IN LOWEST LOCKED POSITION WITH SIDERAILS UP. ALL NEEDS AND CARE ATTENDED PROMPTLY. WILL ENDORSE TO HAM BONER PLAN OF CARE.
--- NOTE | 2020-09-04 19:00 | NUR ---
MS POMPOM MAKER INITIAL NOTES Received report from am nurse and sen pt in bed awake and alert watching TV at this time. No signs of any distress or any discomfort noted. Skin warm and dry to touch. She have IVF of NS at 75ml/hr infusing on her right forearm patent and intact. Re-oriented pt where she at and how to used the call light system and encourage her to used it if she needs some help or needs assistance. kept her warm and comfortable at all times. bed in low and lock in position with side rails X2 and bed in low and lock in position . place call light at reach. will continue monitoring.
--- NOTE | 2020-09-04 20:30 | NUR ---
MS HELICOPTER REPAIRER NOTES Pt seen in bed and found out that she's already pulled out her IV line and playing with her hands. saw blood stain on her Iv site . Patient noticed confusion and she doesn't even know that she pulled her IV line already . Re-oriented and explained to her that needs to put another IV line for her IVF fluid and antibiotic to treat her dehydration and UTI. Pt just looked at me but calmed no agitation noted. Re-inserted a new one on her right forearm gauge 22 secured with tape and kerlix for safety then started the IVF NS at 75 ml/hr to infuse. Sponge bath also done with the helped of JUANJO Riddle and we reposition pt for comfort. kept her warm and comfortable at all times. Snacks also served. No aspiration noted. will continue monitoring. be alarm set for pt safety.
[2020-09-04] MEDS: ENOXAPARIN SODIUM 40 MG/0.4 ML DISP.SYRIN SQ SCH (21:07)
[2020-09-04] MEDS: AZITHROMYCIN 500 MG in IV D5W 250 ML IV SCH (21:07)
--- NOTE | 2020-09-04 21:07 | NUR ---
Ms winter sports manager notes Zithromax IVP bag hung by another nurse as ordered. Pt watching TV at this time.
[2020-09-04] MEDS: CEFTRIAXONE 1 G in IV D5W 50 ML IV SCH (22:33)
[2020-09-05] MEDS: IV NS 0.9% 1,000 ML IV PRN (01:27)
[2020-09-05 06:10] LABS: BASOPHILS % (AUTO) 0.4 % (0.0-2.0); EOSINOPHILS % (AUTO) 2.9 % (0.0-6.0); HEMATOCRIT 33 % (33-45); HEMOGLOBIN 10.9 g/dL (11.5-14.8); LYMPHOCYTES # (AUTO) 2.2 /CMM (0.8-4.8); LYMPHOCYTES % (AUTO) 22.8 % (20.0-44.0); MEAN CORPUSCULAR HGB CONC 33 g/dl (31.0-36.0); MEAN CORPUSCULAR VOLUME 93 fL (82-100); MONOCYTES # (AUTO) 1.2 /CMM (0.1-1.30); MONOCYTES % (AUTO) 12.8 % (2.0-12.0); NEUTROPHILS # (AUTO) 5.8 /CMM (1.8-8.9); NEUTROPHILS % (AUTO) 61.1 % (43.0-81.0); PLATELET COUNT (AUTO) 299 /CMM (150-450); RED BLOOD CELL COUNT(AUTO) 3.54 MIL/uL (4.0-5.2); WHITE BLOOD COUNT (AUTO) 9.5 K/uL (4.3-11.0)
--- NOTE | 2020-09-05 06:35 | NUR ---
ms poonam marie notes pt woke up calmed , quiet watching TV after morning care done. all due meds given and all needs met. Patient stable throughout the night , no signs of any distress or any discomfort noted. kept her warm and comfortable at all times. bed in low and lock in position with side rails x2 up and bed alarm set for her safety. will endorse to am nurse that patient needs assistance for feeding and also for continuity of care. Place call light at reach.
[2020-09-05 06:40] LABS: CALCIUM, SERUM 7.9 mg/dL (8.5-10.1); CREATININE 0.8 mg/dL (0.6-1.3); POTASSIUM 3.6 mmol/L (3.5-5.1)
--- NOTE | 2020-09-05 07:55 | NUR ---
MS RN OPENING NOTES PATIENT IN BED, AWAKE, ALERT, ORIENTED WITH PERIOD OF CONFUSION AND FORGETFULNESS, REALITY ORIENTATION PROVIDED. ABLE TO MAKE NEEDS KNOWN, VERBALLY RESPONSIVE. DENIES PAIN OR DISCOMFORT AT THIS TIME. BREATHING EVEN AND NON-LABORED. RIGHT FOREARM IV NOTED, PATENT, INTACT. KEPT CLEAN AND DRY. CALL LIGHT WITHIN EASY REACH.
[2020-09-05 08:00] VITALS: BP 103/50
[2020-09-05] MEDS: ASPIRIN EC 81 MG TABLET.DR PO SCH (08:58)
[2020-09-05] MEDS: LOSARTAN POTASSIUM 50 MG TABLET PO SCH (08:59)
[2020-09-05] MEDS: METOPROLOL SUCCINATE 25 MG TAB.SR.24H PO SCH (09:00)
[2020-09-05] MEDS: MEMANTINE HCL 5 MG TABLET PO SCH (09:02)
--- NOTE | 2020-09-05 11:30 | NUR ---
PT CAME TO EVALUATE THE PATIENT.
[2020-09-05 16:00] VITALS: BP 107/46
[2020-09-05] MEDS: MONTELUKAST SODIUM (10MG) 10 MG TABLET PO SCH (17:42)
[2020-09-05] MEDS: GABAPENTIN 100 MG CAPSULE PO SCH (17:42)
[2020-09-05] MEDS: risperiDONE 0.25 MG TABLET PO SCH (17:42)
[2020-09-05] MEDS: ATORVASTATIN 40 MG TABLET PO SCH (17:42)
--- NOTE | 2020-09-05 18:30 | NUR ---
MS RN CLOSING NOTES PATIENT IN BED, AWAKE, ALERT, ORIENTED WITH PERIOD OF CONFUSION AND FORGETFULNESS, REALITY ORIENTATION PROVIDED. ABLE TO MAKE NEEDS KNOWN, VERBALLY RESPONSIVE. NO S/S OF PAIN OR DISCOMFORT NOTED AT THIS TIME. BREATHING EVEN AND NON-LABORED. ALL DUE MEDS ARE GIVEN ORDERED. SAFETY MEASURES IN PLACE; BED IN LOWEST LOCKED POSITION WITH SIDERAILS UP. KEPT CLEAN AND DRY. GOOD PERICARE PROVIDED. CALL LIGHT WITHIN REACH. WILL ENDORSED TO REGISTERED VETERINARY TECHNICIAN PLAN OF CARE.
[2020-09-05 20:00] VITALS: BP 164/92
--- NOTE | 2020-09-05 20:00 | NUR ---
MS RN OPENING NOTE RECEIVED PT AWAKE IN BED. A/O X1, WITH PERIODS OF CONFUSION AND FORGETFULNESS. ABLE TO BE REDIRECTED, UNDERSTANDS [place], AND ABLE TO VERBALIZE NEEDS. PT IS STABLE ON ROOM AIR. NO SOB NOTED. NO S/S OF RESPIRATORY DISTRESS. PT IS ON BEDREST. PT HAS NO C/O PAIN AT THIS TIME. IV ACCESS IN RFA #22G, INTACT AND PATENT. SAFETY MEASURES MAINTAINED. BED IN LOWEST LOCKED POSITION, HOB ELEVATED, SIDE RAILS UP X2. CALL LIGHT AND TABLE WITHIN REACH. WILL CONTINUE WITH PLAN OF CARE.
--- NOTE | 2020-09-05 21:30 | NUR ---
RN NOTES NEW IV ACCESSS, INSERTED ON THE LEFT FOREARM GAUGE 22
[2020-09-05] MEDS: ENOXAPARIN SODIUM 40 MG/0.4 ML DISP.SYRIN SQ SCH (21:50)
[2020-09-05] MEDS: CEFTRIAXONE 1 G in IV D5W 50 ML IV SCH (22:13)
[2020-09-05] MEDS: AZITHROMYCIN 500 MG in IV D5W 250 ML IV SCH (22:14)
--- NOTE | 2020-09-06 01:20 | NUR ---
RN NOTES PT. PULLED OUT HER IV ACCESS AND REFUSED TO HAVE ANOTHER ONE, INFORMED DR. CAMACHO
--- NOTE | 2020-09-06 06:33 | NUR ---
MS RN CLOSING NOTE PT IS AWAKE IN BED AT THIS TIME. A/0 X1, WITH PERIODS OF CONFUSION AND FORGETFULNESS. PT IS STABLE ON ROOM AIR. NO SOB NOTED. NO S/S OF RESPIRATORY DISTRESS. NO IV ACCESS AT THIS TIME, DR CAMACHO AWARE. ALL NEEDS HAVE BEEN MET. SAFETY PRECAUTIONS MAINTAINED AT ALL TIMES. BED IN LOWEST LOCKED POSITION, HOB ELEVATED, SIDE RAILS UP X2. CALL LIGHT AND TABLE WITHIN REACH. WILL ENDORSE TO ONCOMING NURSE FOR CONTINUITY OF CARE.
--- NOTE | 2020-09-06 07:26 | NUR ---
MS RN OPENING NOTE RECEIVED PT IS AWAKE IN BED AT THIS TIME. A/0 X1, WITH PERIODS OF CONFUSION AND FORGETFULNESS. PT IS STABLE ON ROOM AIR. NO SOB NOTED. NO S/S OF RESPIRATORY DISTRESS. NO IV ACCESS AT THIS TIME, DR CAMACHO AWARE. PATIENT HAS L HIP BRUISE. SAFETY PRECAUTIONS IN PLACE. BED IN LOWEST LOCKED POSITION, HOB ELEVATED, SIDE RAILS UP X2. CALL LIGHT AND TABLE WITHIN REACH. WILL CONTINUE TO MONITOR
[2020-09-06 08:00] VITALS: BP 111/52
[2020-09-06] MEDS: ASPIRIN EC 81 MG TABLET.DR PO SCH (08:50)
[2020-09-06] MEDS: LOSARTAN POTASSIUM 50 MG TABLET PO SCH (08:51)
[2020-09-06 08:52] VITALS: BP 111/70
[2020-09-06] MEDS: MEMANTINE HCL 5 MG TABLET PO SCH (08:52)
[2020-09-06] MEDS: METOPROLOL SUCCINATE 25 MG TAB.SR.24H PO SCH (08:52)
--- NOTE | 2020-09-06 12:27 | NUR ---
RN NOTES INFORMED BY DR. CRAIG THAT D/C PLAN FOR PATIENT IS DISCHARGE TO HOME TODAY W/ PATIENT'S SON TO IMPORT EXPORT AGENT PATIENT. RECEIVED PRESCRIPTION MED FILLED OUT BY DR. CRAIG.
--- NOTE | 2020-09-06 15:07 | NUR ---
MS HULL DRAFTER NOTES RECEIVED DISCHARGE ORDER FOR PATIENT. PATIENT IS A/O X2. PATIENT WILL BE GOING HOME WITH HER SON (ARELIS). PATIENT IS BREATHING EVENLY AND UNLABORED ON ROOM AIR. NO SIGNS OF DISTRESS NOTED. PATIENT'S IV ACCESS WAS REMOVED LAST NIGHT. PATIENT HAS LEFT HIP BRUISE. DISCHARGE INSTRUCTIONS WERE GIVEN TO THE SON IN WRITTEN AND VERBAL FORM. COPIES GIVEN TO SON. PATIENT'S BELONGINGS WERE REVIEWED AND ITEMIZED, COSIGNED BY TWO RNS FOR ACCURACY. PATIENTS ID BAND WAS REMOVED. PATIENT LEFT IN PRIVATE CAR IN STABLE CONDITION
[2020-09-06] MEDS ORDERED: AZITHROMYCIN 250 MG TABLET PO SCH (21:00)
== END 2020-09-06 15:15 | disposition home health service (06) | DRG 193 ==
LOC: ER 17:34 → MED 20:17
PROVIDERS: ADMIT Nurse Practitioner Acute Care; ATTEND Nurse Practitioner Acute Care
DX: J15.9 Unspecified bacterial pneumonia (principal); G93.41 Metabolic encephalopathy; N17.0 Acute kidney failure with tubular necrosis; E44.0 Moderate protein-calorie malnutrition; N39.0 Urinary tract infection, site not specified; I50.32 Chronic diastolic (congestive) heart failure; D68.69 Other thrombophilia; I25.10 Atherosclerotic heart disease of native coronary artery without angina pectoris; J45.909 Unspecified asthma, uncomplicated; I11.0 Hypertensive heart disease with heart failure; M16.11 Unilateral primary osteoarthritis, right hip; K21.9 Gastro-esophageal reflux disease without esophagitis; E86.0 Dehydration; E78.5 Hyperlipidemia, unspecified; Z79.82 Long term (current) use of aspirin; M81.0 Age-related osteoporosis without current pathological fracture; R53.1 Weakness; E88.09 Other disorders of plasma-protein metabolism, not elsewhere classified; R73.9 Hyperglycemia, unspecified; Z74.09 Other reduced mobility; Z68.30 Body mass index [BMI] 30.0-30.9, adult; F01.50 Vascular dementia, unspecified severity, without behavioral disturbance, psychotic disturbance, mood disturbance, and anxiety; E66.9 Obesity, unspecified; Z20.822 Contact with and (suspected) exposure to COVID-19; B96.4 Proteus (mirabilis) (morganii) as the cause of diseases classified elsewhere
CPT/HCPCS: 36415; 71045-TC; 73502; 80048-TC; 80053-TC; 80061-TC; 80076-TC; 81001; 83605-TC; 83735-TC; 84100-TC; 84443-TC; 84484-TC; 85025-TC; 85730-TC; 87040-TC; 87081-TC; 87086-TC; 87186-TC; 97110-TC; 97112-TC; 97116-TC; 97530-TC; C9803; G0378; J0456; J0696; J1650; J2185; J7030; J7050; J7060